=== PATIENT | female | born 1935 | race Caucasian/White ===

== ENCOUNTER 2017-01-10 16:34 | Inpatient (IN) | payer MEDICARE ==
[~2017-01-10] VITALS: Ht 165.1 cm; Wt 81.6 kg
[2017-01-10 16:34] VITALS: BP 131/69; PULSE 81; RESP 17; TEMP 98.4; O2SAT 95
[~2017-01-10 16:34] MED LIST: ATEN50TA GT; DONE10TA44 GT; FER300L GT; GUAI5SYR PO; LEVO88TA2 GT; MEMA28CA GT; MULT GT; OMEP20CA10 GT
--- NOTE | 2017-01-10 16:34 | NUR ---
Placed in room 1 . Placed on hospital monitor, blood pressure machine and pulse oximeter. To gown for exam. Side rails up. Report given to Tomeka THRASHER.
--- NOTE | 2017-01-10 16:35 | NUR ---
MD Boone at bedside evaluating patient
--- NOTE | 2017-01-10 16:35 | NUR ---
Pt brought by ambulance, Alert to name, pt sent to ER due to abnormal laba Na 160, pt skin is dry, cap refill <3, VSS, pt has G-tube in place, respirations even and unlabored, pt purposeful.
--- NOTE | 2017-01-10 16:35 | NUR ---
ER MD Whiteside at bedside evaluating the patient
[2017-01-10] MEDS ORDERED: NACL 0.9% 1,000 ML IV ONE (16:45)
--- NOTE | 2017-01-10 16:47 | NUR ---
Cook Apprentice at bedside for blood draw. patient identified
[2017-01-10] MEDS ORDERED: ACET-2165 GT (16:59)
[2017-01-10] MEDS ORDERED: ALBU2.5V7 INH (16:59)
--- NOTE | 2017-01-10 16:59 | NUR ---
Medication reconciliation completed with information provided by - list from facility. Any prior medication reconciliation on file was reviewed and corrected.
[2017-01-10 17:03] LABS: BASOPHILS # (AUTO) 0.1 K/uL (0.0-0.2); BASOPHILS % (AUTO) 0.8 % (0.0-2.0); EOSINOPHILS # (AUTO) 0.4 K/uL (0.0-0.4); EOSINOPHILS % (AUTO) 3.5 % (0.0-4.0); HEMATOCRIT 40.1 % (36-48); HEMOGLOBIN 12.9 g/dL (12.0-16.0); LYMPHOCYTES # (AUTO) 1.6 K/uL (1.0-5.5); LYMPHOCYTES % (AUTO) 13.6 % (20.5-51.5); MEAN CORPUSCULAR HEMOGLOBIN 32 pg (27-31); MEAN CORPUSCULAR HGB CONC 32 % (32-36); MEAN CORPUSCULAR VOLUME 98 fL (79.0-98.0); MONOCYTES # (AUTO) 0.6 K/uL (0.0-1.0); MONOCYTES % (AUTO) 4.8 % (1.7-9.3); NEUTROPHILS # (AUTO) 9.4 K/uL (1.8-7.7); NEUTROPHILS % (AUTO) 77.3 % (40.0-70.0); PLATELET COUNT (AUTO) 208 K/uL (130-430); RED CELL DISTRIBUTION WIDTH 15.4 % (9.0-15.0); WHITE BLOOD COUNT (AUTO) 12.1 K/uL (4.8-10.8)
--- NOTE | 2017-01-10 17:05 | NUR ---
Physician order given to place soft type restraints to prevent IV dislodgement . Restraints placed with quick-release ties to bed frame. Will monitor patient frequently.
[2017-01-10 17:09] LABS: ANION GAP 2 (5-15); CALCIUM 8.3 mg/dL (8.4-11.0); CHLORIDE 115 mmol/L (98-107); CREATININE 1.29 mg/dL (0.55-1.30); GLUCOSE 159 mg/dL (70-99); POTASSIUM 3.6 mmol/L (3.5-5.1); SODIUM SERUM 151 mmol/L (136-145); UREA NITROGEN, BLOOD 59 mg/dL (8-21)
[2017-01-10 17:12] LABS: INR 0.9 (0.8-1.2); PROTHROMBIN TIME 10.3 SECS (9.5-12.5)
[2017-01-10 17:16] LABS: ALANINE AMINOTRANSFERASE 32 U/L (12-78); ALBUMIN 2.6 g/dL (3.4-4.8); ASPARTATE AMINOTRANSFERASE 36 U/L (10-37); CHOLESTEROL 160 mg/dL (<200); HDL CHOLESTEROL 35 mg/dL (>55); LDL CHOLESTEROL 100 mg/dL (<100); TOTAL BILIRUBIN 0.5 mg/dL (0.0-1.0); TOTAL PROTEIN, SERUM 6.6 g/dL (6.4-8.3); TRIGLYCERIDES 150 mg/dL (30-150)
[2017-01-10 17:57] LABS: BILIRUBIN,URINE NEGATIVE (NEGATIVE); BLOOD, URINE 2+ (NEGATIVE); CLARITY/URINE CLOUDY (CLEAR); COLOR,URINE YELLOW (YELLOW); GLUCOSE,URINE NEGATIVE (NEGATIVE); KETONES,URINE TRACE (NEGATIVE); LEUKOCYTE ESTERASE ,URINE 3+ (NEGATIVE); NITRITE, URINE NEGATIVE (NEGATIVE); PH,URINE 6.5 (5.0-8.0); PROTEIN URINE 1+ (NEGATIVE); UROBILINOGEN,URINE 0.2 (0.2-1.0)
[2017-01-10 18:06] LABS: BACTERIA,URINE MANY /HPF (None Seen); MUCUS,URINE None Seen /LPF (None Seen); URINE AMORPHOUS URATE 3+ /HPF (None Seen); WBC,URINE >100 /HPF (0-3)
[2017-01-10 18:07] LABS: YEAST,URINE Few /HPF (None Seen)
[2017-01-10] MEDS ORDERED: LEVOFLOXACIN 500 MG/D5W 100 ML IV ONE (18:30)
[2017-01-10] MEDS ORDERED: ACETAMINOPHEN 325 MG TABLET GT PRN (18:45)
[2017-01-10] MEDS ORDERED: ALBUTEROL SULFATE 0.083% 2.5 MG/3 ML VIAL.NEB INH PRN (18:45)
[2017-01-10] MEDS ORDERED: IPRATROPIUM BROM 0.5 MG/2.5 ML VIAL.NEB (ATROVENT) INH PRN (18:45)
--- NOTE | 2017-01-10 19:00 | NUR ---
Patient will be admitted to care of Dr Macias . Admitted to Tele unit. Will go to room 104A. Belongings list completed. Summary report printed. Report given to Jose .
--- NOTE | 2017-01-10 19:06 | NUR ---
Admission Note Received patient from ER with diagnosis of hypernatremia. Initial Plan of Care discussed-patient verbalized understanding. Family at bedside. Oriented to room, call light, pain management and safety.
[2017-01-10 19:23] VITALS: BP 103/56; PULSE 64; RESP 16; TEMP 96.5; O2SAT 96
[2017-01-10 20:00] VITALS: BP 103/56; PULSE 72; RESP 20; TEMP 96.5; O2SAT 100
--- NOTE | 2017-01-10 20:00 | NUR ---
Initial Notes Received patient resting in bed, awake, disoriented, confused, in bilateral soft wrist restraints. Reoriented patient to self and surroundings. Patient denies any acute distress or pain. IV to right AC #20, patent/clean/dry. G-tube noted, flushed and clamped, dressing clean/dry. Wounds noted to bilateral ankles, pictures taken and charted, optifoam dressing applied. Andersen draining cloudy yellow urine to gravity. Educated patient on use of call light for assistance and fall precautions, patient verbalized understanding. Call light in hand, will continue to monitor.
[2017-01-10] MEDS: DONEPEZIL HCL 5 MG TABLET (ARICEPT) GT SCH (20:41)
[2017-01-10] MEDS: ALBUTEROL SULFATE 0.083% 2.5 MG/3 ML VIAL.NEB INH SCH (20:42)
[2017-01-10] MEDS: IPRATROPIUM BROM 0.5 MG/2.5 ML VIAL.NEB (ATROVENT) INH SCH (20:42)
[2017-01-10] MEDS: 0.45% NACL 1,000 ML IV SCH (20:42)
[2017-01-10] MEDS ORDERED: DONEPEZIL HCL 5 MG TABLET (ARICEPT) GT SCH (21:00)
--- NOTE | 2017-01-10 22:00 | NUR ---
Bilateral Soft Wrist Restraints Telephone order received from Dr. Boone for bilateral soft wrist restraints, due to patient attempting to remove tubes/lines. Attempted to inform family members via telephone at recorded numbers on facesheet. Son: Valentin Ramires @ , no answer. : Ahmet Ramires @ , no answer. embroidery specialist made aware. Patient tolerating restraints, will continue to monitor.
[2017-01-10 22:08] VITALS: BP 103/56; PULSE 98
[2017-01-11] VITALS (7 sets, daily range): BP systolic 100–117; BP diastolic 47–74; PULSE 65–78; RESP 15–20; TEMP 96–97.6; O2SAT 93–98
--- NOTE | 2017-01-11 | NUR ---
Rounds Patient resting in bed with eyes closed, easily aroused upon nurse entering room. Patient denies any acute distress or pain. Breathing is even and unlabored. IV site patent/clean/dry. Patient tolerating bilateral soft wrist restraints. When released from restraints patient unable to control right hand, pulling at lines/tubes even with re-education. Andersen draining to gravity. GT feeding started per MD order, HOB elevated. Call light in hand, fall precautions in place. Will continue to monitor.
--- NOTE | 2017-01-11 02:00 | NUR ---
Rounds Patient resting comfortably in bed with eyes closed, easily aroused upon nurse entering room. Patient denies any acute distress or pain at this time. Breathing even and unlabored. IV site patent/clean/dry. Andersen draining to gravity. HOB elevated. Patient tolerating restraints. Needs addressed. Call light in hand, fall precautions in place. Will continue to monitor.
--- NOTE | 2017-01-11 04:00 | NUR ---
Rounds Patient resting in bed, awake. Patient denies any acute distress or pain at this time. Vital signs stable. Breathing even and unlabored. IV site patent/clean/dry. Andersen draining to gravity. HOB elevated. Patient tolerating restraints. Needs addressed. Call light in hand, fall precautions in place. Will continue to monitor for changes and safety.
[2017-01-11] MEDS: 0.45% NACL 1,000 ML IV SCH (05:48)
[2017-01-11] MEDS: LEVOTHYROXINE SODIUM 0.088 MG TABLET GT SCH (06:13)
--- NOTE | 2017-01-11 06:35 | NUR ---
Closing Notes Patient resting in bed, awake, reoriented patient to surroundings. Patient denies any acute distress or pain at this time. Breathing even and unlabored on room air. IV site patent/clean/dry, no S/S infection/infiltration noted. Patient tolerating tube feeding, HOB elevated. Andersen draining yellow urine to gravity. Patient remains on bilateral soft wrist restraints due to attempting to remove lines/tubes, tolerating well. Needs addressed throughout shift. Call light in hand, fall precautions in place. Will continue to monitor for changes and safety, and endorse all patient care/needs to oncoming nurse.
[2017-01-11] MEDS: IPRATROPIUM BROM 0.5 MG/2.5 ML VIAL.NEB (ATROVENT) INH SCH ×5 (06:44→23:00)
[2017-01-11] MEDS: ALBUTEROL SULFATE 0.083% 2.5 MG/3 ML VIAL.NEB INH SCH ×5 (06:44→23:00)
--- NOTE | 2017-01-11 07:20 | NUR ---
Initial notes: pt on bed awake. i.v. access in patent. soft wrist restraint applied. pt tried pulling gtube and i.v. access. discussed plan of care. report received at bedside.
--- NOTE | 2017-01-11 07:53 | NUR ---
Nutrition Update Marco Scale 14 noted. Pt admitted for dehydration w/ hypernatremia. Diet: Isosource 1.5 at 30 ml/hr via GT BMI: 30 kg/m2 RD to follow per nutrition care standards.
[2017-01-11] MEDS ORDERED: MEMANTINE HCL 7 MG CAP.SPR.24 GT SCH (09:00)
--- NOTE | 2017-01-11 09:37 | NUR ---
CONSULT RENAL HYPERNATREMIA DR ALVARES [phone] DR ALVARES IS ROUNDING AND INFORMED OF CONSULT
--- NOTE | 2017-01-11 10:00 | NUR ---
Venous dopler: Venous dopler done. need to assist since patient tried to pull the cord.
[2017-01-11] MEDS: OMEPRAZOLE 20 MG CAPSULE.DR (PriLOSEC) GT SCH (10:15)
[2017-01-11] MEDS: FERROUS SULFATE 300 MG/5 ML UDC GT SCH (10:15)
[2017-01-11] MEDS: MULTIVITAMINS TAB 1 TABLET GT SCH (10:21)
[2017-01-11] MEDS: ATENOLOL 50 MG TABLET (TENORMIN) GT SCH (10:21)
[2017-01-11] MEDS ORDERED: MEMANTINE HCL 5 MG TABLET PO ONE (10:30)
[2017-01-11 10:39] LABS: BASOPHILS % (AUTO) 0.2 % (0.0-2.0); EOSINOPHILS # (AUTO) 0.4 K/uL (0.0-0.4); EOSINOPHILS % (AUTO) 4.2 % (0.0-4.0); HEMATOCRIT 34.5 % (36-48); HEMOGLOBIN 11.4 g/dL (12.0-16.0); LYMPHOCYTES # (AUTO) 1.5 K/uL (1.0-5.5); LYMPHOCYTES % (AUTO) 16.8 % (20.5-51.5); MEAN CORPUSCULAR HEMOGLOBIN 32 pg (27-31); MEAN CORPUSCULAR HGB CONC 33 % (32-36); MEAN CORPUSCULAR VOLUME 95 fL (79.0-98.0); MONOCYTES # (AUTO) 0.5 K/uL (0.0-1.0); NEUTROPHILS # (AUTO) 6.6 K/uL (1.8-7.7); NEUTROPHILS % (AUTO) 72.8 % (40.0-70.0); PLATELET COUNT (AUTO) 171 K/uL (130-430); RED BLOOD CELL COUNT(AUTO) 3.61 MIL/uL (4.2-6.2); RED CELL DISTRIBUTION WIDTH 15.1 % (9.0-15.0)
[2017-01-11 10:42] LABS: ANION GAP 3 (5-15); CALCIUM 8.3 mg/dL (8.4-11.0); CHLORIDE 115 mmol/L (98-107); CREATININE 1.12 mg/dL (0.55-1.30); GLUCOSE 188 mg/dL (70-99); POTASSIUM 3.8 mmol/L (3.5-5.1); SODIUM SERUM 148 mmol/L (136-145); UREA NITROGEN, BLOOD 51 mg/dL (8-21)
[2017-01-11] MEDS ORDERED: *HEPARIN PER PHARMACY XX ONE (10:45)
[2017-01-11 10:47] LABS: ALANINE AMINOTRANSFERASE 24 U/L (12-78); ALBUMIN 2.3 g/dL (3.4-4.8); ASPARTATE AMINOTRANSFERASE 24 U/L (10-37); TOTAL BILIRUBIN 0.4 mg/dL (0.0-1.0)
[2017-01-11] MEDS ORDERED: HEPARIN SODIUM,PORCINE 3000 UNITS/0.6 ML BOLUS IVP PRN (11:15)
[2017-01-11] MEDS ORDERED: HEPARIN SODIUM,PORCINE 2000 UNITS/0.4 ML BOLUS IVP PRN (11:15)
--- NOTE | 2017-01-11 12:36 | NUR ---
MARCO SCALE EVALUATION: Patient evaluated for a low Marco score of 14. Patient was awake, alert, confused, and received in a [place] bed with an IsoFlex FELISA mattress with low air-loss therapy initiated. Patient is unable to turn independently. Skin is fair. Recommend encourage and assist patient with repositioning every 2 hours with pillow support and off-load pressure areas with pillows for pressure re-distribution. Elevate, off-load and float bilateral heels with pillows. Use moisture barrier cream on buttocks and other moisture susceptible areas QID and as needed for soiling. Perform skin care and monitor skin integrity Q shift. Maintain patient on a low air-loss mattress.
[2017-01-11] MEDS ORDERED: HEPARIN SODIUM,PORCINE 5000 UNITS/ML VIAL IV ONE (13:00)
--- NOTE | 2017-01-11 13:00 | NUR ---
rounds: pt sleeping. no distress noted.
--- NOTE | 2017-01-11 13:30 | NUR ---
Heparin: started heparin as ordered and per protocol.
--- NOTE | 2017-01-11 15:00 | NUR ---
rounds: pt sleeping. no distress noted.
[2017-01-11] MEDS: D5W 1,000 ML IV SCH ×2 (19:01→19:46)
--- NOTE | 2017-01-11 19:15 | NUR ---
change of shift.initial pt's assessment.pt.recieving heparin-drip:rate:10units/hr=10ml/hr.ptt level 2 b drawn @2000p. 2 f/u via lab w/ value.pt.presents restraint:rt.wrist only.g-tube:feed:isosource:@30ml /hr.day sft nsg telephoned dr. clifford 4 the consent 4 renewal:restraint.2 b f/u.room air,iv fluids infusing via rt.wrist peripheral iv access. clla light placed w/in pt's reach.
--- NOTE | 2017-01-11 19:30 | NUR ---
closing notes: pt stable. needs attended. soft restraint in placed on the right wrist. report given at bedside.
--- NOTE | 2017-01-11 20:06 | NUR ---
PAGED PAGED STEPHANIE RODRIGUEZ AT [phone] SPOKE WITH UMANG.
--- NOTE | 2017-01-11 20:30 | NUR ---
darrin chapman returned the telephone call.apprisd of ther necessity 2 renew the restrainst. provided the order.apprised is he would consent 2 h20 flush g-tube. has provided the order:h20 flush g-tube:100 ml q -6hrs.
[2017-01-11] MEDS ORDERED: LEVOFLOXACIN 500 MG/D5W 100 ML IV SCH (21:00)
--- NOTE | 2017-01-11 21:00 | NUR ---
2100p medications administered via g-tube;flushed, patent.call light placed w/in pt's reach.awaiting the ptt lab value.
--- NOTE | 2017-01-11 22:15 | NUR ---
ptt level conveyed per lab:ptt value:>120.2 f/u w/ adjustment per instructions orders.sheet-parameter.
--- NOTE | 2017-01-11 22:30 | NUR ---
attended 2 the heparin adjustment:w/ tomás;rn/kiet,janene;rn adm.am to hold th3 heparin and order repeat ptt. tthe ptt level 2 b drawn @2330p.
[2017-01-11] MEDS: DONEPEZIL HCL 5 MG TABLET (ARICEPT) GT SCH (22:50)
[2017-01-11] MEDS: MEMANTINE HCL 5 MG TABLET PO SCH (22:51)
[2017-01-12] VITALS (7 sets, daily range): BP systolic 115–152; BP diastolic 49–75; PULSE 70–84; RESP 16–20; TEMP 96.4–98.1; O2SAT 92–98; Ht 165.1 cm; Wt 81.6 kg
--- NOTE | 2017-01-12 | NUR ---
g-tube residual assessed.g-tube flushed:100ml.residual noted@10ml,g-tube patent.
[2017-01-12] MEDS: HEPARIN 25,000 UNITS in 250 ML PREMIX IV PRN ×3 (01:00→21:17)
--- NOTE | 2017-01-12 01:15 | NUR ---
ptt value :72.per dida;rn/chg,brain;rn/adm,heparin 2 b re-intiated @800units/hr=8ml/hr.via lt.hand. iv access dry/intact.
[2017-01-12] MEDS: IPRATROPIUM BROM 0.5 MG/2.5 ML VIAL.NEB (ATROVENT) INH SCH ×6 (03:00→23:00)
[2017-01-12] MEDS: ALBUTEROL SULFATE 0.083% 2.5 MG/3 ML VIAL.NEB INH SCH ×6 (03:00→23:00)
--- NOTE | 2017-01-12 03:00 | NUR ---
pt.assessed.iv heparin infusing@800units/hr=8ml/hr.via lt.hand.pt.repositioned.call lioght placed w/in pt's reach.
--- NOTE | 2017-01-12 06:00 | NUR ---
pt.repositioned,cleaned.iv heparin assessed.g-tube flushed:100ml,g-tube residual:10ml.patent.g-tube gfeed bag changed.
[2017-01-12] MEDS: D5W 1,000 ML IV SCH ×2 (06:15→17:37)
[2017-01-12] MEDS: LEVOTHYROXINE SODIUM 0.088 MG TABLET GT SCH (06:21)
[2017-01-12 07:19] LABS: ANION GAP 6 (5-15); CALCIUM 8.4 mg/dL (8.4-11.0); CHLORIDE 109 mmol/L (98-107); CREATININE 0.95 mg/dL (0.55-1.30); GLUCOSE 228 mg/dL (70-99); POTASSIUM 4.3 mmol/L (3.5-5.1); SODIUM SERUM 142 mmol/L (136-145); UREA NITROGEN, BLOOD 38 mg/dL (8-21)
--- NOTE | 2017-01-12 08:00 | NUR ---
OPENING NOTE PT LAYING IN BED, RESTING, EASY TO AROUSE, ORIENTED TO NAME, WRIST RESTRAINT NOTED TO RIGHT ARM, SKIN INTACT, IV NOTED TO RIGHT FOREARM INFUSING APPROPRIATE FLUID AT ORDERED RATE, IV NOTED TO LEFT HAND INFUSING HEPARIN DRIP, BOTH SITES PATENT, NO S/S OF INFILTRATION NOTED. GTUBE IN PLACE, FEEDING INFUSING AT ORDERED RATE. NOTED LEFT SIDED FLACCIDNESS, SKIN INTACT, VSS. SAFETY MEASURES IN PLACE, BED IN LOW POSITION AND LOCKED, CALL LIGHT WITHIN REACH, RESTRAINTS RELEASED DURING ASSESSMENT, PATIENT NOTED TO BE PULLING AT LINES, AND COMBATIVE, BEFORE EXITING ROOM RESTRAINTS APPLIED. WILL CONTINUE TO MONITOR.
[2017-01-12 08:58] LABS: BASOPHILS % (AUTO) 0.2 % (0.0-2.0); EOSINOPHILS # (AUTO) 0.3 K/uL (0.0-0.4); EOSINOPHILS % (AUTO) 3.4 % (0.0-4.0); HEMATOCRIT 34.4 % (36-48); HEMOGLOBIN 11.2 g/dL (12.0-16.0); LYMPHOCYTES # (AUTO) 1.5 K/uL (1.0-5.5); LYMPHOCYTES % (AUTO) 16.5 % (20.5-51.5); MEAN CORPUSCULAR HEMOGLOBIN 31 pg (27-31); MEAN CORPUSCULAR HGB CONC 33 % (32-36); MEAN CORPUSCULAR VOLUME 96 fL (79.0-98.0); MONOCYTES # (AUTO) 0.6 K/uL (0.0-1.0); MONOCYTES % (AUTO) 6.7 % (1.7-9.3); NEUTROPHILS # (AUTO) 6.9 K/uL (1.8-7.7); NEUTROPHILS % (AUTO) 73.2 % (40.0-70.0); PLATELET COUNT (AUTO) 161 K/uL (130-430); RED CELL DISTRIBUTION WIDTH 14.8 % (9.0-15.0); WHITE BLOOD COUNT (AUTO) 9.3 K/uL (4.8-10.8)
--- NOTE | 2017-01-12 09:09 | NUR ---
Marcel. Consult: Called for consult with Dr. Flanagan, regarding DVT, ordered by Dr. Boone, spoke with Em. She said he was in "clinical" until 5:00 pm and would not be available until after that.
--- NOTE | 2017-01-12 09:45 | NUR ---
MEDICATIONS ADMINISTERED VIA GTUBE, 50CC RESIDUAL NOTED, WATER FLUSHED WITH 100CC, PT TOLERATED WELL, RESTRAINTS RELEASED WHILE IN ROOM, PATIENT NOTED TO BE AGITATED AND PULLING AT LINES, RESTRIANTS RETURNED PRIOR TO EXITING ROOM, SAFETY MEASURES IN PLACE, CALL LIGHT WITHIN REACH.
[2017-01-12] MEDS: MULTIVITAMINS TAB 1 TABLET GT SCH (10:28)
[2017-01-12] MEDS: OMEPRAZOLE 20 MG CAPSULE.DR (PriLOSEC) GT SCH (10:28)
[2017-01-12] MEDS: LACTOBACILLUS RHAMNOSUS GG 1 CAP CAPSULE PO SCH ×2 (10:28→21:15)
[2017-01-12] MEDS: MEMANTINE HCL 5 MG TABLET PO SCH ×2 (10:28→21:15)
[2017-01-12] MEDS: ATENOLOL 50 MG TABLET (TENORMIN) GT SCH (10:29)
[2017-01-12] MEDS: FERROUS SULFATE 300 MG/5 ML UDC GT SCH (10:29)
--- NOTE | 2017-01-12 12:12 | NUR ---
PAGED DR SHOEMAKER TO REPORT URINE CULTURE RESULTS, AWAITING CALL BACK.
--- NOTE | 2017-01-12 12:28 | NUR ---
DR SHOEMAKER NOTIFIED OF URINE CULTURE RESULTS, PATIENT POSITIVE FOR E.COLI, ESBL. MDRO OF THE URINE, INFORMED THAT CULTURE IS RESISTANT TO LEVAQUIN WHICH IS THE ANTIBIOTIC ORDERED AT THIS TIME. MD ACKNOWLEDGE INFORMATION, NO NEW ORDER RECEIVED AT THIS TIME.
[2017-01-12] MEDS ORDERED: COMMUNICATION ORDER XX ONE (12:45)
--- NOTE | 2017-01-12 12:45 | NUR ---
DR SAHARA PAIZ
--- NOTE | 2017-01-12 14:10 | NUR ---
DC PLANNING: Met with dr. Boone in CM dept, the md. requested Ltac eval for the pt. DT new labs ESBL- UA and positive layla. DVT. >> Notified PATRICIA Sheldon at [facility] and requesting auth for Ltac transfer. Per Mo, she is requesting pt. transferring to insurance net work 24 hr after the pt. is stabilized. She stated that admitting notification was delayed, the pt. was adm on 01/10 and received faxed notification 01/12. [facility] admitting dept made aware of the concern. Pito asked for her return call regarding transferring the pt. to net work. She need to consult with her MD. -- CM to f/u. Addendum: 01/12/17 at 1515 by Debbie JULES Faxed DC Planning order to [place] [facility] [phone]. Notified Stephy Hanson Will follow up.
--- NOTE | 2017-01-12 16:00 | NUR ---
ROUNDS PT RESTRAINTS RELEASED, NEURO CHECKS COMPLETE, PT CLEANED AND REPOSTIONED WITH PILLOW SUPPORT, ALL NEEDS ATTENDED TO, PT RESTRAINT RETURNED, SAFTY MEASURES IN PLACE, SIDE RAILS UP, WILL FOLLOW UP
--- NOTE | 2017-01-12 16:37 | NUR ---
Swallow Eval: Left voicemail for Yadira informing her of swallow eval order.
[2017-01-12] MEDS: ERTAPENEM SODIUM 1 GM in NS 50 ML IV SCH (17:38)
--- NOTE | 2017-01-12 19:00 | NUR ---
CLOSING NOTE PT LAYING IN BED, FAMILY AT BEDSIDE, PT CONFUSED, ORIENTED TO OWN NAME, NO S/S OF DISTRESS AT THIS TIME, IV TO RAC AND LEFT HAND INTACT, PATENT AND INFUSING AT ORDERED RATES, GTUBE IN PLACE AND INFUSING FEEDING AND ORDERED RATE. LAMA CATHETER IN PLACE, AND DRAINING TO GRAVITY. PATIENT POSITIONED WITH PILLOW SUPPORT TO BILATERAL LOWER EXTREMITIES AND LEFT ARM. RIGHT ARM NO CURRENTLY IN RESTRAIN TO DUE FAMILY AT BEDSIDE AND IS ABLE TO MONITOR PATIENT AND KEEP FROM PULLING AT LINES, SAFETY AND CONTACT PRECAUTIONS MAINTAINED, BED IN LOW POSITION AND LOCKED, BEDSIDE REPORT TO BE GIVEN TO ONCOMING NURSE AT BEDSIDE.
--- NOTE | 2017-01-12 19:47 | NUR ---
OPENING NOTE/FAMILY AND DR. FLANAGAN AT BEDSIDE Late entry due to pt. care. Pt.'s family at bedside with questions and concerns, Dr. Flanagan talking to family. Bedside report and pt. received from day shift nurse. Pt.'s son Valentin Burris" was concerned about pt.'s soft wrist restraint but Valentin Zavala's daughter (pt.'s granddaughter) explained need for restraint due to pt. pulling out medical lines and all family members at bedside agreed. Plan of care discussed; safety measures in place. Bed alarm on. Room near nurses station. Will continue to monitor.
[2017-01-12] MEDS: DONEPEZIL HCL 5 MG TABLET (ARICEPT) GT SCH (21:15)
--- NOTE | 2017-01-12 22:00 | NUR ---
TUBEFEEDING/CHG BED BATH/SKIN CARE Late entry due to pt. care. Tubefeeding bag and tubing changed. Pt. tolerating feeding well with zero residuals noted at this time. Dressing to left ankle changed due to soiling. Pt. tolerated well. CHG bed bath given. No s/s of injury related to soft wrist restraints. Repositioned with pillows as support. Safety measures in place. Bed alarm on. Call light placed to right hand. Encouraged pt. to use call light for needs but she is confused and forgetful. Room near nurses station. Will continue to monitor.
--- NOTE | 2017-01-12 23:17 | NUR ---
ROUNDS Late entry due to pt. care. Pt. is resting quietly in bed with no s/s of acute distress. Safety measures in place. Bed alarm on. No s/s of injury related to soft wrist restraints. Will continue to monitor.
--- NOTE | 2017-01-13 00:23 | NUR ---
ROUNDS/WATER FLUSH Pt. is resting quietly in bed with no s/s of acute distress. No s/s of injury related to soft wrist restraints. Water flush done as ordered. Pt. tolerating feeding well with zero residuals noted at this time. Safety measures in place. Bed alarm on. Will continue to monitor.
[2017-01-13] MEDS: D5W 1,000 ML IV SCH (02:10)
--- NOTE | 2017-01-13 02:40 | NUR ---
IV SITE TO LEFT A/C REDRESSED Late entry due to pt. care. IV site to right a/c was redressed by charge nurse, PRICE Ly. Will continue to monitor.
[2017-01-13] MEDS: ALBUTEROL SULFATE 0.083% 2.5 MG/3 ML VIAL.NEB INH SCH ×4 (03:00→15:00)
[2017-01-13] MEDS: IPRATROPIUM BROM 0.5 MG/2.5 ML VIAL.NEB (ATROVENT) INH SCH ×4 (03:00→15:00)
[2017-01-13 03:53] VITALS: BP 114/60; PULSE 64; RESP 18; TEMP 97.2; O2SAT 95
--- NOTE | 2017-01-13 04:04 | NUR ---
ROUNDS Pt. is resting quietly in bed with no s/s of acute distress. No s/s of injury related to soft wrist restraints. Safety measures in place. Bed alarm on. Will continue to monitor.
--- NOTE | 2017-01-13 04:41 | NUR ---
REPOSITIONING Repositioned pt. with pillows as support. No s/s of pain or discomfort at this time. No s/s of injury related to soft bilateral wrist restraints. Safety measures in place. Bed alarm on. Will continue to monitor.
--- NOTE | 2017-01-13 05:08 | NUR ---
LAB Spoke to Soni from lab regarding pt.'s PTT lab draw. She stated white spooler Salma is on the unit making rounds. Will continue to follow up.
[2017-01-13] MEDS: LEVOTHYROXINE SODIUM 0.088 MG TABLET GT SCH (06:00)
[2017-01-13 07:19] LABS: BASOPHILS % (AUTO) 0.4 % (0.0-2.0); EOSINOPHILS # (AUTO) 0.3 K/uL (0.0-0.4); EOSINOPHILS % (AUTO) 4.5 % (0.0-4.0); HEMATOCRIT 34.9 % (36-48); HEMOGLOBIN 11.4 g/dL (12.0-16.0); LYMPHOCYTES # (AUTO) 1.5 K/uL (1.0-5.5); LYMPHOCYTES % (AUTO) 22.3 % (20.5-51.5); MEAN CORPUSCULAR HEMOGLOBIN 31 pg (27-31); MEAN CORPUSCULAR HGB CONC 33 % (32-36); MEAN CORPUSCULAR VOLUME 95 fL (79.0-98.0); MONOCYTES # (AUTO) 0.4 K/uL (0.0-1.0); MONOCYTES % (AUTO) 5.3 % (1.7-9.3); NEUTROPHILS # (AUTO) 4.5 K/uL (1.8-7.7); NEUTROPHILS % (AUTO) 67.5 % (40.0-70.0); PLATELET COUNT (AUTO) 182 K/uL (130-430); RED BLOOD CELL COUNT(AUTO) 3.68 MIL/uL (4.2-6.2); RED CELL DISTRIBUTION WIDTH 14.8 % (9.0-15.0); WHITE BLOOD COUNT (AUTO) 6.7 K/uL (4.8-10.8)
[2017-01-13 07:48] LABS: ALANINE AMINOTRANSFERASE 22 U/L (12-78); ALBUMIN 2.3 g/dL (3.4-4.8); ANION GAP 6 (5-15); ASPARTATE AMINOTRANSFERASE 28 U/L (10-37); CALCIUM 8.5 mg/dL (8.4-11.0); CHLORIDE 105 mmol/L (98-107); CREATININE 0.99 mg/dL (0.55-1.30); GLUCOSE 151 mg/dL (70-99); SODIUM SERUM 140 mmol/L (136-145); TOTAL BILIRUBIN 0.2 mg/dL (0.0-1.0); TOTAL PROTEIN, SERUM 6.3 g/dL (6.4-8.3); UREA NITROGEN, BLOOD 25 mg/dL (8-21)
--- NOTE | 2017-01-13 07:53 | NUR ---
PTT RESULT PENDING/CLOSING NOTES PTT result is pending; endorsed heparin drip protocol orders to day shift nurse. Pt. and bedside report given to day shift nurse. Pt. is stable with no significant changes. All needs met throughout shift. Safety measures in place. Endorsed care to day shift nurse.
[2017-01-13 08:00] VITALS: BP 101/47; PULSE 71; RESP 20; TEMP 96.4; O2SAT 95
--- NOTE | 2017-01-13 08:07 | NUR ---
S.T. SWALLOW EVAL PERFORMED. PT PRESENTS W/ PRE-ORAL DYSPHAGIA. SHE TOLERATED TSP NECTAR THICK LIQUIDS RELUCTANTLY THOUGH W/ FUNCTIONAL TRANSFER AND SWALLOW. SHE TOOK TSP PUREE BUT SPAT IT OUT; SHE THEN REFUSED FURTHER PRESENTATION STATING "I DON'T WANT TO EAT". UNABLE TO PRESENT FURTHER P.O. TRIALS. REC: NPO - CONTINUE GT FEEDING. RE-EVAL WHEN P.O. INTEREST INCREASES. NURSE LASHAUN NOTIFIED. G8996 CM G8997 CM G8998 CM NOMS LEVEL 2
--- NOTE | 2017-01-13 08:34 | NUR ---
OPENING NOTE RECEIVED REPORT FROM NIGHT NURSE, PATIENT IS RESTING COMFORTABLY IN BED WITH NO NOTED DISTRESS, DISCOMFORT OR SOB. PATIENT IS ALERT BUT CONFUSED. PATIENT IS ON RESTRAINTS BECAUSE SHE TAKES OUT IV'S AND OTHER LINES. RESTRAINTS WERE REMOVED FOR 5 MINUTES AND PATIENT WAS REPOSITIONED AND TOLERATED IT WELL. THE PTT WAS 83 AND SO THE HEPARIN DRIP WAS DECREASED 100 UNITS TO 700 UNITS AND ANOTHER PTT WAS ORDERED FOR 1430. CALL LIGHT IS WITHIN REACH AND BED IS IN LOWEST POSITION. WILL CONTINUE TO MONITOR.
[2017-01-13] MEDS: ATENOLOL 50 MG TABLET (TENORMIN) GT SCH (09:00)
--- NOTE | 2017-01-13 09:09 | NUR ---
Nutrition Note Nutrition Consult (LOW ANDREA, TUBEFEEDING, WOUNDS) received 01/13/17 0143. Pt was seen and assessed by RD on 01/12/17. Please refer to Nutrition Assessment for details. RD to continue to follow per nutrition care standards.
[2017-01-13] MEDS: MEMANTINE HCL 5 MG TABLET PO SCH (09:48)
[2017-01-13] MEDS: FERROUS SULFATE 300 MG/5 ML UDC GT SCH (09:48)
[2017-01-13] MEDS: MULTIVITAMINS TAB 1 TABLET GT SCH (09:48)
[2017-01-13] MEDS: OMEPRAZOLE 20 MG CAPSULE.DR (PriLOSEC) GT SCH (09:48)
[2017-01-13] MEDS: LACTOBACILLUS RHAMNOSUS GG 1 CAP CAPSULE PO SCH (09:48)
--- NOTE | 2017-01-13 11:41 | NUR ---
NOTE PATIENT IS RESTING IN BED WITH NO NOTED DISTRESS, DISCOMFORT OR SOB. CALL LIGHT IS WITHIN REACH AND VITAL SIGNS WERE WITHIN NORMAL RANGE AND ALL MORNING MEDICATIONS WERE GIVEN THIS MORNING WITH NO COMPLICATIONS. DR SHOEMAKER RENEWED THE RESTRAINT ORDER FOR THE RIGHT ARM. WILL CONTINUE TO MONITOR.
[2017-01-13 12:33] VITALS: BP 108/78; PULSE 70; RESP 17; TEMP 97.9; O2SAT 97
--- NOTE | 2017-01-13 12:37 | NUR ---
DISCHARGE PLANNING DC order back to [facility]. Faxed SNF referral to [facility] [phone]. will follow up. Addendum: 01/13/17 at 1424 by Debbie Childs DP spoke with Estelita in admitting at [facility] patient assigned to [facility] room 101A RN to report [phone]. Made patient Bruno Ramires in hospital room 119A aware of patient discharge back to [facility] today. PRICE Morgan made aware. CM will follow up with on Tavo Diaz. Any ambulance can be arranged. Placed transportation packet in nurses station. Addendum: 01/13/17 at 1509 by Debbie Childs DP PER PRICE MORGAN CALLED [facility] [phone] SPOKE WITH COLIN ARRANGED BLS TRANSPORT HARNESS REPAIRER 5PM.
--- NOTE | 2017-01-13 14:24 | NUR ---
NOTE PATIENT IS RESTING IN BED COMFORTABLY IN BED WITH NO NOTED DISTRESS, DISCOMFORT AND SOB. BED IS IN LOWEST POSITION AND CALL LIGHT IS WITHIN REACH. WOUND CARE WAS PROVIDED ON BILATERAL ANKLES AND PATIENT TOLERATED WELL. WILL CONTINUE TO MONITOR.
--- NOTE | 2017-01-13 14:24 | NUR ---
WOUND EVALUATION: Wound Consult received from Dr. Boone. Thank you, Dr. Boone, for the consult. Patient received in a [place] Bed with an IsoFlex FELISA mattress with low air-loss therapy, awake, sleepy, confused, limited verbal response. Patient is unable to turn independently. Marco Score is a 14. Past Medical History: CVA, Dementia. Recent Labs: WBC 6.7, RBC 3.68, Hgb 11.4, Hct 34.9, BUN 25, Creat 0.99, Gluc 151, Alb 2.3, PTT 77.9. Intrinsic factors that delay wound healing: CVA, Hypoalbuminemia. Extrinsic factors that delay wound healing: Decreased mobility. Blood Culture x 2 in progress. MRSA Screen negative. Urine Culture positive for E. Coli (ESBL, MDRO). Wound Assessment: 1) Left Lateral Malleolus: Unstageable Pressure Ulcer, present on admission. 70% yellow tissue, 30% pink tissue. No odor, scant yellow drainage. Measures 2.5 cm x 1.9 cm x 0.3 cm. Recommend: Cleanse wound with normal saline. Place moisture barrier cream onto britany-wound. Put Venelex ointment onto wound bed. Cover with foam dressing. Perform wound care daily, and as needed for dressing soiling or dislodgement. 2) Right Foot, Lateral Border, Anterior to Heel: Small chronic wound, present on admission. 100% black eschar. No odor, no drainage. Per-wound pink. Recommend: Cover with foam dressing for protection. Perform wound care daily, and as needed for dressing soiling or dislodgement. Also recommend: Reposition patient every 2 hours with pillow support and off-load pressure areas with pillows for pressure re-distribution. Offload, elevate and float bilateral feet/heels with pillows at all times. Perform skin care and monitor skin integrity Q shift. Use moisture barrier cream on buttocks and other moisture susceptible areas QID and as needed for soiling. Maintain patient on a low air-loss mattress.
--- NOTE | 2017-01-13 16:00 | NUR ---
NOTE PATIENT WAS DISCHARGED BACK TO [facility] AND DR SHOEMAKER SPOKE TO THE FAMILY AND THEY WERE OK WITH THE PATIENT GOING BACK, REPORT WAS GIVEN TO ARABELLA AND TRANSPORTATION IS SUPPOSE TO BE HERE AT 1700. TOOK A PICTURE OF PATIENT'S WOUND AND PATIENT'S IV WILL REMAIN BECAUSE PATIENT WILL CONTINUE ON IV ATB AT SNF. PATIENT WAS CLEANED AND PUT IN ORANGE. TRANSITIONAL CARE WAS PROVIDED AND PATIENT'S FAMILY VERBALIZED UNDERSTANDING. WILL CONTINUE TO MONITOR UNTIL EMT ARRIVE.
[2017-01-13 16:09] VITALS: BP 106/66; PULSE 71; RESP 18; TEMP 98; O2SAT 98
[2017-01-13 16:22] VITALS: BP 106/66; PULSE 66; RESP 18; TEMP 98; O2SAT 98
[2017-01-13] MEDS: ERTAPENEM SODIUM 1 GM in NS 50 ML IV SCH (17:00)
--- NOTE | 2017-01-13 18:47 | NUR ---
DISCHARGE EMT IS HERE TO DIRECTOR MERIT SYSTEM PATIENT IS STABLE CONDITION WITH NO NOTED DISTRESS, DISCOMFORT OR SOB. PADMINI FRITZ IS EXPECTING PATIENT REPORT WAS GIVEN TO ARABELLA, FAMILY IS AWARE AND TRANSITION OF CARE WAS PROVIDED TO FAMILY WHO VERBALIZED UNDERSTANDING. ALL BELONGINGS WERE TAKEN WITH EMT
[2017-01-13] MEDS ORDERED: APIXABAN 2.5 MG TABLET PO SCH (21:00)
[2017-01-14] MEDS ORDERED: BALSAM PERU/CASTOR OIL 60 GM OINT...G. TP SCH (09:00)
== END 2017-01-13 18:50 | DRG 299 ==
LOC: SED 16:34 → SMU 18:51
PROVIDERS: ADMIT Internal Medicine Hospice and Palliative Medicine; ATTEND Internal Medicine Hospice and Palliative Medicine
DX: I82.403 Acute embolism and thrombosis of unspecified deep veins of lower extremity, bilateral (principal); G93.41 Metabolic encephalopathy; N39.0 Urinary tract infection, site not specified; E87.0 Hyperosmolality and hypernatremia; N17.9 Acute kidney failure, unspecified; E86.0 Dehydration; E03.9 Hypothyroidism, unspecified; F01.50 Vascular dementia, unspecified severity, without behavioral disturbance, psychotic disturbance, mood disturbance, and anxiety; K21.9 Gastro-esophageal reflux disease without esophagitis; Z93.1 Gastrostomy status; Z88.0 Allergy status to penicillin; Z88.8 Allergy status to other drugs, medicaments and biological substances; Z91.040 Latex allergy status; Z79.899 Other long term (current) drug therapy; I69.320 Aphasia following cerebral infarction; B96.20 Unspecified Escherichia coli [E. coli] as the cause of diseases classified elsewhere; I12.9 Hypertensive chronic kidney disease with stage 1 through stage 4 chronic kidney disease, or unspecified chronic kidney disease; N18.9 Chronic kidney disease, unspecified
CPT/HCPCS: 36415; 71010; 80048; 80053; 80061; 81000-TC; 83880; 85025; 85379; 85610-TC; 85730-TC; 87040-TC; 87081; 87086; 87186-TC; 92610-GN; 93005; 93970; 94640; 94760; 96361; 96374; 99285; J1335; J1644; J1956; J7060

== ENCOUNTER 2017-02-06 21:27 | Emergency (ER) | payer MEDICARE ==
[~2017-02-06] VITALS: Ht 160 cm; Wt 63.5 kg
[2017-02-06 21:27] VITALS: BP_SYST 130
[~2017-02-06 21:27] MED LIST changes: +ACET-2165 GT; +ALBU2.5V7 INH; -GUAI5SYR PO
--- NOTE | 2017-02-06 21:30 | NUR ---
Patient to ER bed 5 to gown for evaluation. Side rails up. Report given to .
--- NOTE | 2017-02-06 21:43 | NUR ---
Patient brought to ER by ambulance from nursing facility post mechanical fall. 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 Per facility, patient was found on the floor. patient denies pain, no signs of trauma, no bleeding, alert to person, Gtube, incontinent of urine & feces, left side muscle atrophy. No signs of acute distress.
--- NOTE | 2017-02-06 22:01 | NUR ---
ER MD Bai at bedside for evaluation
[2017-02-06] MEDS ORDERED: NACL 0.9% 1,000 ML IV ONE (22:19)
--- NOTE | 2017-02-06 22:35 | NUR ---
Crusher Operator at bedside for blood draw.
--- NOTE | 2017-02-06 22:50 | NUR ---
Patient off the unit for CT scan
--- NOTE | 2017-02-06 22:50 | NUR ---
Note eliceosanty in EDM - 02/06/17 at 2356 by JAGDISH Patient is cooperative, however, dows not want an IV. Family convinced patient to agree to the IV but pulled the first IV out. At second IV attempt patient pulled the hand. ER MD Bai aware.
--- NOTE | 2017-02-06 23:00 | NUR ---
# 14 FR In and Out catheter with use of sterile technique. Immediate return of 300 ml YELLOW cloudy urine noted. Urine sample collected and sent to lab. Pt tolerated procedure well.
--- NOTE | 2017-02-06 23:16 | NUR ---
Patient is cooperative, however, dows not want an IV. Family convinced patient to agree to the IV but pulled the first IV out. At second IV attempt patient pulled the hand. ER MD Bai aware.
[2017-02-06 23:29] LABS: BASOPHILS % (AUTO) 0.5 % (0.0-2.0); EOSINOPHILS # (AUTO) 0.3 K/uL (0.0-0.4); EOSINOPHILS % (AUTO) 4.9 % (0.0-4.0); HEMATOCRIT 33.5 % (36-48); HEMOGLOBIN 11.4 g/dL (12.0-16.0); LYMPHOCYTES # (AUTO) 1.2 K/uL (1.0-5.5); LYMPHOCYTES % (AUTO) 17.9 % (20.5-51.5); MEAN CORPUSCULAR HEMOGLOBIN 33 pg (27-31); MEAN CORPUSCULAR HGB CONC 34 % (32-36); MEAN CORPUSCULAR VOLUME 97 fL (79.0-98.0); MONOCYTES # (AUTO) 0.6 K/uL (0.0-1.0); MONOCYTES % (AUTO) 8.4 % (1.7-9.3); NEUTROPHILS # (AUTO) 4.7 K/uL (1.8-7.7); NEUTROPHILS % (AUTO) 68.3 % (40.0-70.0); PLATELET COUNT (AUTO) 276 K/uL (130-430); RED BLOOD CELL COUNT(AUTO) 3.44 MIL/uL (4.2-6.2); RED CELL DISTRIBUTION WIDTH 16.5 % (9.0-15.0); WHITE BLOOD COUNT (AUTO) 6.8 K/uL (4.8-10.8)
[2017-02-06 23:33] LABS: ANION GAP 4 (5-15); CALCIUM 8.6 mg/dL (8.4-11.0); CHLORIDE 106 mmol/L (98-107); GLUCOSE 112 mg/dL (70-99); POTASSIUM 3.9 mmol/L (3.5-5.1); SODIUM SERUM 138 mmol/L (136-145); UREA NITROGEN, BLOOD 48 mg/dL (8-21)
[2017-02-06 23:38] LABS: ALANINE AMINOTRANSFERASE 24 U/L (12-78); ALBUMIN 2.6 g/dL (3.4-4.8); ASPARTATE AMINOTRANSFERASE 23 U/L (10-37); TOTAL BILIRUBIN 0.3 mg/dL (0.0-1.0); TOTAL PROTEIN, SERUM 6.3 g/dL (6.4-8.3)
[2017-02-07] MEDS ORDERED: ASCO500T20 GT (00:20)
[2017-02-07] MEDS ORDERED: ZIN220 GT (00:20)
[2017-02-07] MEDS ORDERED: AMIN30LI2 GT (00:20)
[2017-02-07] MEDS ORDERED: COLL90OI2 TP (00:20)
[2017-02-07] MEDS ORDERED: APIX5TAB GT (00:20)
--- NOTE | 2017-02-07 00:21 | NUR ---
Medication reconciliation completed with information provided by - list from facility. Any prior medication reconciliation on file was reviewed and corrected.
[2017-02-07 00:25] LABS: BILIRUBIN,URINE NEGATIVE (NEGATIVE); BLOOD, URINE 3+ (NEGATIVE); CLARITY/URINE CLOUDY (CLEAR); COLOR,URINE YELLOW (YELLOW); GLUCOSE,URINE NEGATIVE (NEGATIVE); KETONES,URINE NEGATIVE (NEGATIVE); LEUKOCYTE ESTERASE ,URINE 3+ (NEGATIVE); NITRITE, URINE NEGATIVE (NEGATIVE); PH,URINE 6.5 (5.0-8.0); PROTEIN URINE 2+ (NEGATIVE)
[2017-02-07 00:26] LABS: UROBILINOGEN,URINE 0.2 (0.2-1.0)
[2017-02-07 00:29] LABS: BACTERIA,URINE MANY /HPF (None Seen); MUCUS,URINE None Seen /LPF (None Seen); RBC,URINE 20-50 /HPF (0-3); WBC,URINE >100 /HPF (0-3)
[2017-02-07] MEDS ORDERED: cefTRIAXone 1 GM in LIDOCAINE 1%, 20 ML MDV 2.1 ML IM ONE (00:45)
--- NOTE | 2017-02-07 01:52 | NUR ---
Called Anuj Quinones & gave report to Adriana THRASHER. Discussed discharge instructions and prescription. Patient is going back to [facility]
[2017-02-07 01:58] VITALS: BP_SYST 112
--- NOTE | 2017-02-07 01:58 | NUR ---
Patient given written and verbal discharge instructions and verbalizes understanding. ER MD Bai discussed with patient the results and treatment provided. Given copies of tests performed in ER. Patient in stable condition. ID arm band removed. Rx of macrobid given. Patient educated on pain management and to follow up with PMD. Pain Scale 0/10. Opportunity for questions provided and answered.
== END 2017-02-07 01:58 | disposition home or self-care (01) ==
LOC: SED 21:28
DX: Z00.00 Encounter for general adult medical examination without abnormal findings (principal); F03.90 Unspecified dementia, unspecified severity, without behavioral disturbance, psychotic disturbance, mood disturbance, and anxiety; K21.9 Gastro-esophageal reflux disease without esophagitis; I10 Essential (primary) hypertension; R51 Headache; Z91.040 Latex allergy status; Z88.0 Allergy status to penicillin; Z86.73 Personal history of transient ischemic attack (TIA), and cerebral infarction without residual deficits; W06.XXXA Fall from bed, initial encounter; Y93.89 Activity, other specified; Y99.8 Other external cause status; Y92.89 Other specified places as the place of occurrence of the external cause
CPT/HCPCS: 36415; 70450; 80053; 81000; 85025; 85610; 87086; 96372; 99285; J0696; J2001; J7030; 87186-TC

== ENCOUNTER 2017-02-09 20:39 | Inpatient (IN) | payer MEDICARE, OTHER ==
[~2017-02-09] VITALS: Ht 162.6 cm; Wt 60.8 kg
[~2017-02-09 20:39] MED LIST changes: +AMIN30LI2 GT; +APIX5TAB GT; +ASCO500T20 GT; +COLL90OI2 TP; +GUAI5SYR PO; +ZIN220 GT
[2017-02-09 20:45] VITALS: BP 133/62; PULSE 61; RESP 18; TEMP 97.4; O2SAT 98
--- NOTE | 2017-02-09 20:49 | NUR ---
Placed in room 06 . Placed on vehicle monitor technician, blood pressure machine and pulse oximeter. To gown for exam. Side rails up. Report given to PRICE Wilson.
--- NOTE | 2017-02-09 20:55 | NUR ---
Pt came from a SNF via S ambulance. Pt was sent for PICC line placement. Pt is AAOx1 which is pt baseline. Pt is confused and agitated. Will continue to monitor. No distress noted.
--- NOTE | 2017-02-09 21:50 | NUR ---
ER Dr. Bai at bedside examining patient.
[2017-02-09] MEDS ORDERED: NACL 0.9% 1,000 ML IV ONE (21:58)
--- NOTE | 2017-02-09 22:00 | NUR ---
# 20 gauge angiocath placed to L hand. Use of asceptic technique. Opsite placed over site. Blood return noted. Blood for lab drawn from site. Flushed with 10 cc of normal saline. No evidence of infiltration noted. Patient tolerated well.
--- NOTE | 2017-02-09 22:10 | NUR ---
Pt is confused and trying to pull out IV. IV secured with Coban. Dr. Bai made aware and cancelled fluids at this time.
--- NOTE | 2017-02-09 22:45 | NUR ---
Pt pulled out IV. Pt has a 10 cm hematoma on R hand. Coban placed on hand to reduce swelling. Dr. Bai made aware. Addendum: 02/09/17 at 2340 by SARAI Approx 10 cm
[2017-02-09 22:59] LABS: BASOPHILS % (AUTO) 0.4 % (0.0-2.0); EOSINOPHILS # (AUTO) 0.3 K/uL (0.0-0.4); EOSINOPHILS % (AUTO) 4.3 % (0.0-4.0); HEMATOCRIT 34.9 % (36-48); HEMOGLOBIN 11.9 g/dL (12.0-16.0); LYMPHOCYTES # (AUTO) 1.2 K/uL (1.0-5.5); LYMPHOCYTES % (AUTO) 17.9 % (20.5-51.5); MEAN CORPUSCULAR HEMOGLOBIN 32 pg (27-31); MEAN CORPUSCULAR HGB CONC 34 % (32-36); MEAN CORPUSCULAR VOLUME 95 fL (79.0-98.0); MONOCYTES # (AUTO) 0.5 K/uL (0.0-1.0); MONOCYTES % (AUTO) 7.3 % (1.7-9.3); NEUTROPHILS # (AUTO) 4.8 K/uL (1.8-7.7); NEUTROPHILS % (AUTO) 70.1 % (40.0-70.0); PLATELET COUNT (AUTO) 331 K/uL (130-430); RED BLOOD CELL COUNT(AUTO) 3.68 MIL/uL (4.2-6.2); RED CELL DISTRIBUTION WIDTH 16.1 % (9.0-15.0); WHITE BLOOD COUNT (AUTO) 6.8 K/uL (4.8-10.8)
[2017-02-09 23:09] LABS: ANION GAP 4 (5-15); CALCIUM 8.6 mg/dL (8.4-11.0); CHLORIDE 105 mmol/L (98-107); GLUCOSE 113 mg/dL (70-99); POTASSIUM 3.9 mmol/L (3.5-5.1); SODIUM SERUM 136 mmol/L (136-145); UREA NITROGEN, BLOOD 31 mg/dL (8-21)
--- NOTE | 2017-02-09 23:15 | NUR ---
Unable to get straight catheter due to pt being agitated and pushing away staff. Dr. Bai made aware.
[2017-02-09 23:20] LABS: ALANINE AMINOTRANSFERASE 29 U/L (12-78); ALBUMIN 2.8 g/dL (3.4-4.8); ASPARTATE AMINOTRANSFERASE 31 U/L (10-37); TOTAL BILIRUBIN 0.3 mg/dL (0.0-1.0); TOTAL PROTEIN, SERUM 6.7 g/dL (6.4-8.3)
[2017-02-09 23:31] LABS: PROTHROMBIN TIME 11.1 SECS (9.5-12.5)
[2017-02-10] MEDS ORDERED: HALOPERIDOL LACTATE 5 MG/ML VIAL IVP PRN
--- NOTE | 2017-02-10 00:15 | NUR ---
Patient will be admitted to care of Dr. Boone. Admitted to Med Surg unit. Will go to room 133A. Summary report printed. Report given to Estella THRASHER.
--- NOTE | 2017-02-10 00:27 | NUR ---
ADMIT NOTE Received pt from ER to the floor with a diagnosis of UTI. Admission process initiated. patient oriented to pain management, safety and call light-teach back done.
--- NOTE | 2017-02-10 00:30 | NUR ---
WOUND CARE/PHOTOS Photos of wounds to left foot were taken and placed in chart. Wounds cleansed with NS and foam dressing applied.
--- NOTE | 2017-02-10 01:00 | NUR ---
NEW IV SITE/IVF/TUBEFEEDING Late entry due to pt. care. IV established to right wrist 22g by charge nurse, PRICE Quintana. Successful upon first attempt. IVF one time order infusing as ordered. Gtube feeding infusing as ordered. Zero residuals noted. Safety and fall precautions in place. Bed alarm on. Will continue to monitor.
[2017-02-10 01:26] VITALS: BP 131/46; PULSE 73; RESP 18; TEMP 96.8; O2SAT 100
--- NOTE | 2017-02-10 02:38 | NUR ---
PAGED/SPOKE TO DR. SHOEMAKER Reported to Dr. Shoemaker that pt. arrived without an IV site because she pulled it out in ER but charge nurse, Lilian RN was able to establish peripheral line. Also reported pt. was medicated with Haldol IVP as ordered PRN for agitation but pt. continues to pull out and bite ID bands, IV line, and G-tube lines. Also reported that ER nurse was unable to obtain UA and urine cx and that pt. is incontinent. Clarified IVF order with Dr. Shoemaker who stated just give the one time dose and he will be here to see pt. in the morning. Orders for restraints given. Will carry out.
[2017-02-10 04:00] VITALS: BP 114/70; PULSE 68; RESP 18; TEMP 96.9; O2SAT 91
--- NOTE | 2017-02-10 04:25 | NUR ---
MRSA MRSA to bilateral nares collected and will be sent to lab.
--- NOTE | 2017-02-10 04:59 | NUR ---
NOTIFIED FAMILY RE: RESTRAINTS Late entry due to pt. care. Family was notified regarding order for restraints due to pt. pulling out IV line and Gtube. Pt.'s daughter, Haleigh Oswald ([phone]) agreed to plan of care (also witnessed by PRICE Littlejohn) and requested for her brother's phone number to be noted in pt.'s chart: Valentin Keyla (pt.'s son) [phone].
--- NOTE | 2017-02-10 05:53 | NUR ---
D/C RESTRAINTS Pt.'s son Valentin Ramires [phone] was notified by Haleigh Oswald (pt.'s daughter) regarding restraints and he is very upset and wants the restraint removed. I explained to him that medication was not effective and pt. has been pulling out IV and lines from ER department and continues to be at risk for injury and disruption of medical care. Valentin stated "I DON'T CARE, TAKE THEM OFF OF HER." We informed him that the restraint will be removed per his request. Haleigh called back to apologize about her brother's response. Will continue to monitor pt.
--- NOTE | 2017-02-10 06:10 | NUR ---
SON AT BEDSIDE/INCONTINENCE CARE Valentin Ramires (pt.'s son) at bedside with patient. Refusing for pt. to continue receiving IVF even after continuously explaining MD orders. He is also very upset about pt. being restrained. Stated "Can we just sedate her?" I explained to Valentin that pt. was medicated with Haldol and the risks associated with heavily medicating pts. He verbalized understanding and continued to explain that he is just very frustrated with his mom being "in and out of the hospital." No other needs at this time. Charge nurse, PRICE Quintana also made aware. Incontinence care was done. Pt. had 1 BM and void. Tolerated well. Safety precautions in place. Call light to right hand. Will continue to monitor.
[2017-02-10] MEDS ORDERED: AMIKACIN SULFATE 500 MG in D5W 100 ML IV ONE (06:30)
--- NOTE | 2017-02-10 07:30 | NUR ---
ENDORSED ORDERS/CLOSING NOTES All needs met. Pt. in no s/s of acute distress. Family at bedside. Safety precautions in place. Bedside report and care endorsed to day shift nurse. Amikacin and urine culture order endorsed to day shift nurse to follow up.
--- NOTE | 2017-02-10 07:48 | NUR ---
Nutrition Update Marco Scale 13 noted. Pt admitted for UTI. Diet: Fibersource HN at 55 ml/hr, Free Water Flush: 30 via GT BMI: 23.2 kg/m2 RD to follow per nutrition care standards.
[2017-02-10 07:55] VITALS: BP 133/73; PULSE 69; RESP 17; TEMP 98.6; O2SAT 95
--- NOTE | 2017-02-10 07:56 | NUR ---
Initial Note Received pt in bed, no s/s of distress or sob noted, pt has no facial grimacing noted for pain, no c/o pain at this time, pt in stable condition. Pt pat, confused, provided pt with reality orientation. IV catheter patent, no signs of infection or infiltration noted, running iv fluids as ordered. Bed at lowest position, call light within reach, will continue to monitor pt for any change, fall precautions in place. Family at bedside, family continues to refuse to have pt on restraints, family at bedside to watch pt, charge nurse aware. Addendum: 02/10/17 at 0758 by Patricia Amado RN noted pt to have impairment on left side, able to move arm on right side but not left, no facial droop noted. Addendum: 02/10/17 at 1809 by Patricia Amado RN g tube patent, flushes, placement verified, dressing changed, skin intact, tolerating feedings.
[2017-02-10] MEDS ORDERED: AMIKACIN SULFATE 400 MG in D5W 100 ML IV SCH (09:00)
--- NOTE | 2017-02-10 10:45 | NUR ---
ROUNDS Pt in bed, no s/s of distress or sob noted, pt has no facial grimacing noted for pain, pt in stable condition, pt resting comfortably. Will continue to monitor pt for any changes.
--- NOTE | 2017-02-10 11:10 | NUR ---
Consult Called consult spoke to Sera Harrell for ESBL and E. Coli
[2017-02-10 11:23] VITALS: Ht 162.6 cm; Wt 60.8 kg
[2017-02-10 11:46] LABS: PROTHROMBIN TIME 10.8 SECS (9.5-12.5)
--- NOTE | 2017-02-10 12:10 | NUR ---
In and Out Catheter In and out catheter was done, aseptic technique used, specimen collected, pt tolerated, about 300ml of cloudy yellow urine obtained.
[2017-02-10 12:57] LABS: BILIRUBIN,URINE NEGATIVE (NEGATIVE); BLOOD, URINE 3+ (NEGATIVE); CLARITY/URINE CLOUDY (CLEAR); COLOR,URINE YELLOW (YELLOW); GLUCOSE,URINE NEGATIVE (NEGATIVE); KETONES,URINE NEGATIVE (NEGATIVE); LEUKOCYTE ESTERASE ,URINE 4+ (NEGATIVE); NITRITE, URINE NEGATIVE (NEGATIVE); PROTEIN URINE NEGATIVE (NEGATIVE); UROBILINOGEN,URINE 0.2 (0.2-1.0)
[2017-02-10 13:00] LABS: RBC,URINE >100 /HPF (0-3)
[2017-02-10 13:01] LABS: BACTERIA,URINE MANY /HPF (None Seen); WBC,URINE >100 /HPF (0-3)
[2017-02-10 13:13] VITALS: BP 129/72; PULSE 68; RESP 17; TEMP 98.1; O2SAT 95
[2017-02-10] MEDS: ERTAPENEM SODIUM 0.5 GM in NS 50 ML IV SCH (13:27)
--- NOTE | 2017-02-10 13:30 | NUR ---
WOUND EVALUATION: Wound Consult received from Dr. Boone. Thank you, Dr. Boone, for the consult. Patient received in a Mckenney Bed with an IsoFlex FELISA mattress (low air-loss therapy initiated), awake, sleepy, confused. Patient is unable to turn in bed independently. Marco Score is a 13. Past Medical History: CVA, Dementia. Recent Labs: WBC 6.8, RBC 3.68, Hgb 11.9, Hct 34.9, BUN 31, Creat 0.90, Gluc 113, Alb 2.8. Intrinsic factors that delay wound healing: Hypoalbuminemia, CVA. Extrinsic factors that delay wound healing: Decreased mobility. Microbiology: Blood Culture x 2, MRSA Screen, and Urine Culture results in progress. Wound Assessment: 1) Left Lateral Malleolus: Unstageable Pressure Ulcer, present on admission. 20% yellow tissue, 75% dark dull red tissue, 5% dark discolor. No odor, scant yellow drainage. Measures 2.0 cm x 1.8 cm x 0.3 cm. Recommend: Cleanse wound with normal saline. Place moisture barrier cream onto britany-wound. Put Venelex ointment onto wound bed. Cover with foam dressing. Perform wound care daily, and as needed for dressing soiling or dislodgement. 2) Left Foot, Lateral Border: Blanchable redness, present on admission. No odor, no drainage. Recommend: Cover with foam dressing for protection. Perform wound care daily, and as needed for dressing soiling or dislodgement. Also recommend: Reposition patient every 2 hours with pillow support and off-load pressure areas with pillows for pressure re-distribution. Offload, elevate and float bilateral feet/heels with pillows at all times. Perform skin care and monitor skin integrity Q shift. Use moisture barrier cream on buttocks and other moisture susceptible areas QID and as needed for soiling. Maintain patient on low air-loss therapy.
[2017-02-10] MEDS ORDERED: BALSAM PERU/CASTOR OIL 60 GM OINT...G. TP PRN (14:30)
[2017-02-10 16:05] VITALS: BP 126/70; PULSE 70; RESP 16; TEMP 97.9; O2SAT 96
--- NOTE | 2017-02-10 18:07 | NUR ---
Closing Note Pt in bed, no s/s of distress or sob noted, pt has no facial grimacing noted for pain, no c/o pain at this time, pt in stable condition. Pt aaox1, confused, provided pt with reality orientation. IV catheter patent, no signs of infection or infiltration noted, running iv fluids as ordered. Bed at lowest position, call light within reach, will endorse care of pt to incoming nurse, fall precautions in place. Pt has a g tube with prescribed settings as ordered, tolerating.
[2017-02-10 19:40] VITALS: BP 137/70; PULSE 70; RESP 16; TEMP 98.5; O2SAT 97
--- NOTE | 2017-02-10 19:40 | NUR ---
Initial Note Received pt in bed, no s/s of distress or sob noted, pt has no facial grimacing indicating pain, pt in stable condition, vss. Pt aaox1, confused, provided pt with reality orientation. IV catheter noted to right wrist, saline lock, no redness or swelling to the site. g tube noted, with clean dressing, no redness around the site. g tube feeding infusing well as ordered, tolerating feedings, hob in upright position. Bed at lowest position, call light within reach, will continue to monitor pt for any changes, fall precautions in place.
--- NOTE | 2017-02-10 21:50 | NUR ---
RN NOTES INFORMED BOTH CHARGE NURSE AND WOODEN BOAT BUILDER THAT PICC LINE NURSE HAS NOT SHOWN UP TODAY. WOODEN BOAT BUILDER STATES THAT PICC LINE NURSE WAS SUPPOSED TO COME TODAY AT 1500 AND NEVER DID. AT THIS POINT, IT IS TOO LATE FOR THEM TO COME. WILL INFORM DAY NURSE TO FOLLOW UP IN AM.
--- NOTE | 2017-02-10 22:05 | NUR ---
ROUNDS PT. RESTING IN BED WITH EYES OPEN, NO S/S OF SOB OR DISTRESS NOTED. NO FACIAL GRIMACING INDICATING ANY PAIN. G TUBE FEEDING CONTINUES TO INFUSE WELL. WILL CONTINUE TO MONITOR FOR ANY CHANGES. SAFETY AND FALL PRECAUTIONS IN PLACE, CALL LIGHT IN REACH, BED ALARM ON.
[2017-02-11] VITALS (7 sets, daily range): BP systolic 122–147; BP diastolic 58–78; PULSE 60–82; RESP 16–26; TEMP 97–98.7; O2SAT 97–100
--- NOTE | 2017-02-11 00:13 | NUR ---
ROUNDS PT. RESTING IN BED WITH EYES CLOSED, CHEST RISE AND FALL NOTED. NO S/S OF SOB OR DISTRESS NOTED. NO FACIAL GRIMACING INDICATING ANY PAIN. G TUBE FEEDING CONTINUES TO INFUSE WELL. WILL CONTINUE TO MONITOR FOR ANY CHANGES. SAFETY AND FALL PRECAUTIONS IN PLACE, CALL LIGHT IN REACH, BED ALARM ON.
--- NOTE | 2017-02-11 04:01 | NUR ---
ROUNDS PT. RESTING IN BED WITH EYES OPEN.10 CC RESIDUAL NOTED IN G TUBE, FLUSHED WITH 30 CC FREE WATER, NO RESISTANCE NOTED. FEEDING CONTINUES TO INFUSE WELL. NO SIGNS OF ASPIRATION. HOB IN UP RIGHT POSITION. PT. TRYING TO PUSH MY HAND AWAY I WAS FLUSHING HER G TUBE, REMINDED PT. WHY I AM FLUSHING HER G TUBE AND ASKED IF IT IS OKAY FOR ME TO CONTINUE, PT. STATED YES, BUT CONTINUED TO TRY AND PUSH MY HAND AWAY. PLACED PT. IN COMFORTABLE POSITION, SUPPORTED WELL WITH PILLOWS AND COVERED WITH BLANKETS FOR COMFORT. WILL CONTINUE TO MONITOR FOR CHANGES. SAFETY AND FALL PRECAUTIONS IN PLACE. CALL LIGHT IN REACH.
--- NOTE | 2017-02-11 06:38 | NUR ---
CLOSING NOTE PT. RESTING IN BED WITH EYES CLOSED. NO S/S OF SOB OR DISTRESS NOTED. NO FACIAL GRIMACING INDICATING PAIN. G TUBE FEEDING INFUSING WELL. PT. REPOSITIONED AND LEFT IN A COMFORTABLE POSITION. ALL NECESSARY NEEDS WERE MET THROUGHOUT THE SHIFT. SAFETY, FALL AND CONTACT PRECAUTIONS WERE MAINTAINED. WILL ENDORSE CARE TO AM NURSE. CALL LIGHT IN REACH, BED ALARM ON.
--- NOTE | 2017-02-11 07:30 | NUR ---
AM ROUNDS PATIENT RESTING IN BED, AWAKE, ALERT AND ORIENTED X1, REORIENTED TO PLACE, TIME AND EVENT, PATIENT DENIES PAIN, PATIENT REFUSED PHYSICAL EXAM AT THIS TIME, WILL FOLLOW UP, STABLE CONDITION AT THIS TIME, BED IN LOWEST POSITION, THREE SIDE RAILS UP, BED ALARM ON, FALL, ASPIRATION AND ISOLATION PRECAUTIONS IN PLACE, BED CLOSE TO NURSE'S STATION.
[2017-02-11] MEDS: BALSAM PERU/CASTOR OIL 60 GM OINT...G. TP SCH (09:12)
--- NOTE | 2017-02-11 09:15 | NUR ---
RN ROUNDS PATIENT RESTING IN BED, AWAKE, DENIES PAIN, TOLERATING TUBEFEEDING WELL, NO OTHER NEEDS AT THIS TIME, BED IN LOWEST POSITION, THREE SIDE RAILS UP, BED ALARM ON, BED CLOSE TO NURSE'S STATION, FALL, ASPIRATION AND ISOLATION PRECAUTIONS IN PLACE, WILL CONTINUE TO MONITOR.
--- NOTE | 2017-02-11 10:12 | NUR ---
DR LUGO PAGED REGARDING POSITIVE MRSA RESULTS.
--- NOTE | 2017-02-11 10:22 | NUR ---
DR LUGO CALL BACK STATED TO NOTIFY DR SHOEMAKER OF LAB RESULTS SHE IS NOT FOLLOWING THIS PATIENT, DR SHOEMAKER PAGED AT THIS TIME.
--- NOTE | 2017-02-11 10:30 | NUR ---
DR SHOEMAKER CALL BACK STATED TO INFORM DR SERRANO.
--- NOTE | 2017-02-11 11:30 | NUR ---
PICC LINE PLACEMENT BY DMITRI THRASHER, RIGHT BASILIC, STERILE TECHNIQUE, PATIENT TOLERATED WELL, BIOPATCH PLACE, TEGADERM PLACED OVER THE SITE, WILL OBTAIN A CHEST X RAY TO CONFIRM PLACEMENT PRIOR TO USE.
[2017-02-11] MEDS: ERTAPENEM SODIUM 0.5 GM in NS 50 ML IV SCH (11:57)
--- NOTE | 2017-02-11 13:40 | NUR ---
RN ROUNDS PATIENT RESTING IN BED, EYES CLOSED, BREATHING IS EVEN AND UNLABORED, NO SIGNS OF DISTRESS AT THIS TIME, FAMILY IS AT BEDSIDE, UPDATES GIVEN, NO OTHER NEEDS AT THIS TIME, PATIENT BED IS IN LOWEST POSITION, THREE SIDE RAILS UP, BED ALARM ON, FALL, ASPIRATION, AND ISOLATION PRECAUTIONS IN PLACE, BED CLOSE TO NURSE'S STATION.
--- NOTE | 2017-02-11 14:20 | NUR ---
RN ROUNDS PATIENT RESTING IN BED, AWAKE, BEING ASSISTED BY SUJATHA DELATORRE, PATIENT DENIES PAIN, NO OTHER NEEDS AT THIS TIME, BED IN LOWEST POSITION, THREE SIDE RAILS UP, BED ALARM ON, FALL, ASPIRATION AND ISOLATION PRECAUTIONS IN PLACE, WILL CONTINUE TO MONITOR, BED CLOSE TO NURSE'S STATION.
--- NOTE | 2017-02-11 14:34 | NUR ---
DR SERRANO ROUNDS HERE TO SEE THE PATIENT, NOTIFIED OF MRSA POSITIVE RESULT, WILL FOLLOW UP WITH ANY NEW ORDERS.
--- NOTE | 2017-02-11 16:18 | NUR ---
WOUND CARE Wound Assessment: 1) Left Lateral Malleolus: Unstageable Pressure Ulcer, present on admission. 20% yellow tissue, 75% dark dull red tissue, 5% dark discolor. No odor, scant yellow drainage. Measures 2.0 cm x 1.8 cm x 0.3 cm. Cleansed wound with normal saline. Placed moisture barrier cream onto britany-wound. Put Venelex ointment onto wound bed. Covered with foam dressing. Performing wound care daily, and as needed for dressing soiling or dislodgement. 2) Left Foot, Lateral Border: Blanchable redness, present on admission. No odor, no drainage. Covered with foam dressing for protection. Performing wound care daily, and as needed for dressing soiling or dislodgement. Repositioning patient every 2 hours with pillow support and off-loading pressure areas with pillows for pressure re-distribution. Offloading, elevating and floating bilateral feet/heels with pillows at all times. Performing skin care and monitor skin integrity Q shift. Using moisture barrier cream on buttocks and other moisture susceptible areas QID and as needed for soiling. Maintaining patient on low air-loss therapy.
--- NOTE | 2017-02-11 17:20 | NUR ---
RN ROUNDS PATIENT RESTING IN BED, DENIES PAIN, NO OTHER NEEDS AT THIS TIME, BED IN LOWEST POSITION, THREE SIDE RAILS UP, BED ALARM ON, FALL, ASPIRATION, AND ISOLATION PRECAUTIONS IN PLACE, BED CLOSE TO NURSES'S STATION, WILL CONTINUE TO MONITOR.
--- NOTE | 2017-02-11 18:26 | NUR ---
CLOSING NOTES PATIENT RESTING IN BED, AWAKE, DENIES PAIN, NO SIGNS OF DISTRESS, ALL NEEDS MET, BED IN LOWEST POSITION, THREE SIDE RAILS UP, BED ALARM ON, BED CLOSE TO NURSE'S STATION, FALL, ASPIRATION, AND ISOLATION PRECAUTIONS IN PLACE, WILL ENDORSE REPORT TO NOC SHIFT NURSE.
[2017-02-11] MEDS ORDERED: ACETAMINOPHEN 325 MG TABLET GT PRN (19:30)
[2017-02-11] MEDS ORDERED: ALBUTEROL SULFATE 0.083% 2.5 MG/3 ML VIAL.NEB INH PRN (19:30)
--- NOTE | 2017-02-11 19:40 | NUR ---
Initial Note Received pt in bed, no s/s of distress or sob noted, pt has no facial grimacing indicating pain, pt in stable condition, vss. Pt aaox1, confused, provided pt with reality orientation. IV catheter noted to right wrist, saline lock, no redness or swelling to the site. right upper arm picc noted, double lumen, both flush well with good blood return. g tube noted, with clean dressing, no redness around the site. g tube feeding infusing well as ordered, tolerating feedings, hob in upright position. Bed at lowest position, call light within reach, will continue to monitor pt for any changes, fall precautions in place. call light in reach, alarm on.
[2017-02-11] MEDS ORDERED: NON-FORMULARY MEDICATION (Amino Acids/Protein Hydrolys (Pro-Stat Liquid) 30 ML) GT SCH (21:00)
[2017-02-11] MEDS ORDERED: DONEPEZIL HCL 5 MG TABLET (ARICEPT) GT SCH (21:00)
[2017-02-11] MEDS ORDERED: APIXABAN 2.5 MG TABLET PO SCH (21:00)
[2017-02-11] MEDS: MEMANTINE HCL 5 MG TABLET GT SCH (21:48)
[2017-02-11] MEDS: MUPIROCIN 2% TOPICAL OINTMENT 22 GM TP SCH (21:48)
--- NOTE | 2017-02-11 22:05 | NUR ---
ROUNDS PT. RESTING IN BED WITH EYES OPEN, NO S/S OF SOB OR DISTRESS. NO FACIAL GRIMACING INDICATING ANY PAIN. G TUBE FEEDING INFUSING WELL, NO ASPIRATION NOTED. NO RESIDUALS, 30 CC FREE WATER FLUSH DONE. NO RESISTANCE NOTED. WILL CONTINUE TO MONITOR FOR CHANGES. SAFETY AND FALL PRECAUTIONS IN PLACE. CALL LIGHT IN REACH, BED ALARM ON.
--- NOTE | 2017-02-12 00:11 | NUR ---
ROUNDS PT. RESTING IN BED WITH EYES OPEN. NO S/S OF SOB OR DISTRESS NOTED. NO FACIAL GRIMACING FOR PAIN. PT. REPOSITIONED AND SUPPORTED WELL WITH PILLOWS. HEELS ARE ELEVATED. HOB IN UPRIGHT POSITION AND G TUBE FEEDING INFUSING WELL. NO ASPIRATION NOTED. WILL CONTINUE TO MONITOR FOR CHANGES. SAFETY, FALL AND CONTACT PRECAUTIONS IN PLACE, CALL LIGHT IN REACH.
[2017-02-12 00:58] VITALS: BP 162/76; PULSE 89; RESP 18; TEMP 98.7; O2SAT 93
--- NOTE | 2017-02-12 02:00 | NUR ---
rounds pt. removed iv access from right wrist. catheter intact. no signs of heavy bleeding. pt. denies pain. picc line access remains intact. will continue to monitor for changes. safety and fall precautions in place, call light in reach. bed alarm on.
--- NOTE | 2017-02-12 06:45 | NUR ---
CLOSING NOTE PT. PROVIDED WITH HYGIENE CARE. NEW LINENS PROVIDED. REPOSITIONED AND SUPPORTED WELL WITH PILLOWS. LEFT COMFORTABLE. G TUBE FEEDING INFUSING WELL, PT. HOB IN UPRIGHT POSITION. G TUBE FLUSHED WITH 30 CC FREE WATER, NO RESISTANCE NOTED. NO RESIDUALS NOTED. ALL NECESSARY NEEDS WERE MET THROUGHOUT THE SHIFT. SAFETY, FALL AND ASPIRATION PRECAUTIONS WERE MAINTAINED. WILL ENDORSE CARE TO AM NURSE. CALL LIGHT IN REACH, BED ALARM ON.
[2017-02-12 08:00] VITALS: BP 117/74; PULSE 85; RESP 16; TEMP 98; O2SAT 95
[2017-02-12] MEDS ORDERED: MULTIVITAMINS TAB 1 TABLET GT SCH (09:00)
[2017-02-12] MEDS ORDERED: ATENOLOL 50 MG TABLET (TENORMIN) GT SCH (09:00)
[2017-02-12] MEDS ORDERED: ASCORBIC ACID 500 MG TABLET GT SCH (09:00)
[2017-02-12] MEDS ORDERED: LEVOTHYROXINE SODIUM 0.088 MG TABLET GT SCH (09:00)
[2017-02-12] MEDS ORDERED: [UNRECOGNIZED DRUG - OTHER] TP SCH (09:00)
[2017-02-12] MEDS ORDERED: FERROUS SULFATE 300 MG/5 ML UDC GT SCH (09:00)
[2017-02-12] MEDS ORDERED: OMEPRAZOLE 20 MG CAPSULE.DR (PriLOSEC) GT SCH (09:00)
[2017-02-12] MEDS: MEMANTINE HCL 5 MG TABLET GT SCH (09:12)
[2017-02-12] MEDS: MUPIROCIN 2% TOPICAL OINTMENT 22 GM TP SCH (09:13)
[2017-02-12] MEDS: BALSAM PERU/CASTOR OIL 60 GM OINT...G. TP SCH (09:14)
--- NOTE | 2017-02-12 09:15 | NUR ---
RN ROUNDS PATIENT RESTING IN BED, AWAKE, DENIES PAIN, EDUCATED ON MEDICATIONS, PATIENT STATED OK, G TUBE RESIDUAL OUTPUT NOTED TO BE 0ML AT THIS TIME, PATIENT TOLERATED MEDICATION ADMINISTRATION WELL, NO OTHER NEEDS AT THIS TIME, BED IN LOWEST POSITION, THREE SIDE RAILS UP, BED ALARM ON, FALL, ASPIRATION, ISOLATION PRECAUTIONS IN PLACE, BED CLOSE TO NURSE'S STATION .
[2017-02-12 11:33] VITALS: BP 117/74; PULSE 85; RESP 16; TEMP 98; O2SAT 94
--- NOTE | 2017-02-12 11:45 | NUR ---
CALLED FAMILY REGARDING NOTIFICATION OF DISCHARGE, LEFT VOICEMAIL FOR TERA ARZOLA.
--- NOTE | 2017-02-12 12:01 | NUR ---
DC PLANNING: RECEIVED DC ORDER TO GO BACK TO [facility] ROOM 101-A, PLS GIVE REPORT TO RN TEL# [phone], ARRANGED BLS TRANSPORTATION VIA [facility]# , PACKET AT THE NURSE'S STATION, KRYSTA THRASHER AWARE. Addendum: 02/12/17 at 1230 by Kathi Ly RN CALLED [facility]EL# [phone] AND ASKED SALLY GOMEZ KITCHEN AND BATH DESIGNER FOR A TRANSPORTATION AUTH, WHICH [facility] IS REQUESTING--HE GAVE AUTH# [id number] BERNARD, ROXY TALBERT OF [facility] AND GAVE THE AUTH. Addendum: 02/12/17 at 1303 by Kathi Ly RN CALLED AND CANCELLED [facility], PATRICIA AT [facility] RECOMMENDED [facility] BECAUSE THEY ARE CONTRACTED TO THEM. CALLED [facility]# , ARRANGED BLS ASSEMBLER AT [phone]. KRYSTA THRASHER AWARE.
[2017-02-12 12:05] VITALS: BP 149/71; PULSE 76; RESP 17; TEMP 98.3; O2SAT 97
[2017-02-12] MEDS: ERTAPENEM SODIUM 0.5 GM in NS 50 ML IV SCH (12:05)
--- NOTE | 2017-02-12 12:05 | NUR ---
RN ROUNDS PATIENT RESTING IN BED, AWAKE, DENIES PAIN, NO OTHER NEEDS AT THIS TIME, IV ANTIBIOTIC HUNG AND INFUSING WELL, BED IN LOWEST POSITION, THREE SIDE RAILS UP, BED ALARM ON, FALL, ASPIRATION, AND ISOLATION PRECAUTIONS IN PLACE, WILL CONTINUE TO MONITOR, BED CLOSE TO NURSE'S STATION.
--- NOTE | 2017-02-12 13:34 | NUR ---
CALLED FAMILY SPOKE WITH PATIENT GRANDDAUGHTER SHREYA REGARDING DISCHARGE, STATED OK FOR DISCHARGE, UPDATES GIVEN ABOUT PATIENT STATUS WELL.
--- NOTE | 2017-02-12 14:09 | NUR ---
DR MAGGIE ADAMSON NOTIFIED OF MICROBIOLOGY RESULTS, NO NEW ORDERS AT THIS TIME.
--- NOTE | 2017-02-12 14:45 | NUR ---
PT TRANSFERRED Report given to VERONICA THRASHER at [facility]. Transfer packet with Transfer Orders and Medication Reconciliation form given to EMT with report. Exitcare provided. [facility] ID band removed, replaced with ID band with pt's name and . All belongings sent with patient. Patient left floor via gurney escorted by EMT in no distress.
== END 2017-02-12 14:45 | DRG 690 ==
LOC: SED 20:39 → SMU 23:49 → STU 02-10 00:15 → SMU 02-11 09:11
PROVIDERS: ADMIT Internal Medicine Hospice and Palliative Medicine; ATTEND Internal Medicine Hospice and Palliative Medicine
PROC: 02HV33Z Insertion of Infusion Device into Superior Vena Cava, Percutaneous Approach (ICD-10-PCS; principal; 2017-02-11)
PROC: B548ZZA Ultrasonography of Superior Vena Cava, Guidance (ICD-10-PCS; 2017-02-11)
DX: N39.0 Urinary tract infection, site not specified (principal); I69.354 Hemiplegia and hemiparesis following cerebral infarction affecting left non-dominant side; E44.1 Mild protein-calorie malnutrition; B96.20 Unspecified Escherichia coli [E. coli] as the cause of diseases classified elsewhere; F03.90 Unspecified dementia, unspecified severity, without behavioral disturbance, psychotic disturbance, mood disturbance, and anxiety; I10 Essential (primary) hypertension; D64.9 Anemia, unspecified; R13.10 Dysphagia, unspecified; E86.0 Dehydration; M19.90 Unspecified osteoarthritis, unspecified site; Z16.12 Extended spectrum beta lactamase (ESBL) resistance; Z78.9 Other specified health status; Z93.1 Gastrostomy status; Z88.0 Allergy status to penicillin; Z22.322 Carrier or suspected carrier of Methicillin resistant Staphylococcus aureus
CPT/HCPCS: 36415; 71010; 80053; 81000-TC; 83605; 85025; 85610-TC; 85730-TC; 87040-TC; 87081; 87086; 87186-TC; C1751; C1769; J0278; J1335; J1630; J7030; J7050; J7060

== ENCOUNTER 2017-09-06 13:44 | Emergency (ER) | payer MEDICARE ==
[~2017-09-06] VITALS: Ht 165.1 cm; Wt 63.5 kg
[2017-09-06 13:44] VITALS: BP_SYST 131
[~2017-09-06 13:44] MED LIST changes: -GUAI5SYR PO
[2017-09-06] MEDS ORDERED: GASTROGRAFIN 120 ML ONE (14:29)
== END 2017-09-06 15:00 | disposition home or self-care (01) ==
LOC: SED 13:44
DX: K94.23 Gastrostomy malfunction (principal); I10 Essential (primary) hypertension; K21.9 Gastro-esophageal reflux disease without esophagitis; F03.90 Unspecified dementia, unspecified severity, without behavioral disturbance, psychotic disturbance, mood disturbance, and anxiety; Z86.73 Personal history of transient ischemic attack (TIA), and cerebral infarction without residual deficits; Z79.899 Other long term (current) drug therapy; Z88.0 Allergy status to penicillin; Z91.040 Latex allergy status
CPT/HCPCS: 43760; 74240; 99284; Q9963

== ENCOUNTER 2017-10-19 17:49 | Inpatient (IN) | payer MEDICARE ==
[~2017-10-19] VITALS: Ht 162.6 cm; Wt 64.9 kg
[2017-10-19 17:59] VITALS: BP_SYST 136
[2017-10-19] MEDS ORDERED: MAGN400O4 GT (18:13)
[2017-10-19] MEDS ORDERED: FER300L GT (18:13)
[2017-10-19 18:41] LABS: BASOPHILS % (AUTO) 0.6 % (0.0-2.0); EOSINOPHILS # (AUTO) 0.3 K/uL (0.0-0.4); EOSINOPHILS % (AUTO) 4.8 % (0.0-4.0); HEMATOCRIT 41.8 % (36-48); HEMOGLOBIN 13.8 g/dL (12.0-16.0); LYMPHOCYTES # (AUTO) 1.2 K/uL (1.0-5.5); LYMPHOCYTES % (AUTO) 19.5 % (20.5-51.5); MEAN CORPUSCULAR HEMOGLOBIN 33 pg (27-31); MEAN CORPUSCULAR HGB CONC 33 % (32-36); MEAN CORPUSCULAR VOLUME 100 fL (79.0-98.0); MONOCYTES # (AUTO) 0.4 K/uL (0.0-1.0); MONOCYTES % (AUTO) 7.3 % (1.7-9.3); NEUTROPHILS # (AUTO) 4.2 K/uL (1.8-7.7); NEUTROPHILS % (AUTO) 67.8 % (40.0-70.0); PLATELET COUNT (AUTO) 261 K/uL (130-430); RED BLOOD CELL COUNT(AUTO) 4.19 MIL/uL (4.2-6.2); RED CELL DISTRIBUTION WIDTH 13.3 % (9.0-15.0); WHITE BLOOD COUNT (AUTO) 6.1 K/uL (4.8-10.8)
[2017-10-19 18:57] LABS: PROTHROMBIN TIME 10.4 SECS (9.5-12.5)
[2017-10-19 19:03] LABS: ANION GAP < 3 (5-15); CALCIUM 8.7 mg/dL (8.4-11.0); CHLORIDE 104 mmol/L (98-107); CREATININE 0.91 mg/dL (0.55-1.30); GLUCOSE 93 mg/dL (70-99); SODIUM SERUM 137 mmol/L (136-145); UREA NITROGEN, BLOOD 39 mg/dL (8-21)
[2017-10-19 19:07] LABS: ALANINE AMINOTRANSFERASE 28 U/L (12-78); ALBUMIN 3.2 g/dL (3.4-4.8); ASPARTATE AMINOTRANSFERASE 21 U/L (10-37); TOTAL BILIRUBIN 0.3 mg/dL (0.0-1.0)
[2017-10-19] MEDS ORDERED: MILK OF MAGNESIA 30 ML UDC GT PRN (21:45)
[2017-10-19] MEDS ORDERED: ACETAMINOPHEN 325 MG TABLET GT PRN (21:45)
[2017-10-19 22:19] LABS: HEMATOCRIT 42.1 % (36-48); HEMOGLOBIN 13.9 g/dL (12.0-16.0)
[2017-10-19 22:20] VITALS: BP_SYST 153
[2017-10-19] MEDS: D5NS 1,000 ML IV SCH (22:58)
[2017-10-19] MEDS: PANTOPRAZOLE SODIUM 40 MG/VIAL (PROTONIX) IVP SCH (23:06)
[2017-10-20] VITALS: BP_SYST 143
[2017-10-20 06:25] LABS: HEMATOCRIT 39.5 % (36-48); HEMOGLOBIN 13.4 g/dL (12.0-16.0)
[2017-10-20] MEDS: LEVOTHYROXINE SODIUM 0.088 MG TABLET GT SCH (07:00)
[2017-10-20 08:01] VITALS: BP_SYST 144
[2017-10-20 08:08] VITALS: BP_SYST 120
[2017-10-20] MEDS: MEMANTINE HCL 5 MG TABLET GT SCH ×2 (09:00→21:18)
[2017-10-20] MEDS ORDERED: FERROUS SULFATE 300 MG/5 ML UDC GT SCH (09:00)
[2017-10-20] MEDS: ATENOLOL 50 MG TABLET (TENORMIN) GT SCH (09:00)
[2017-10-20] MEDS ORDERED: MIDAZOLAM HCL 5 MG/5 ML VIAL ONE (09:14)
[2017-10-20] MEDS: MEPERIDINE HCL/PF 100 MG/ML AMP ONE ×3 (10:16→10:22)
[2017-10-20] MEDS: MIDAZOLAM HCL 5 MG/5 ML VIAL ONE ×3 (10:16→10:22)
[2017-10-20 13:01] VITALS: BP_SYST 117
[2017-10-20] MEDS: D5NS 1,000 ML IV SCH ×2 (13:08→21:17)
[2017-10-20] MEDS: FERROUS SULFATE 300 MG/5 ML UDC GT SCH (13:21)
[2017-10-20] MEDS: ASCORBIC ACID 500 MG TABLET GT SCH (13:21)
[2017-10-20] MEDS: PANTOPRAZOLE SODIUM 40 MG/VIAL (PROTONIX) IVP SCH ×2 (13:21→21:18)
[2017-10-20] MEDS ORDERED: NALOXONE HCL 0.4 MG/ML AMP (NARCAN) IVP ONE (13:45)
[2017-10-20] MEDS ORDERED: FLUMAZENIL 0.1 MG/ML IVP ONE (13:45)
[2017-10-20 14:29] LABS: HEMATOCRIT 35.9 % (36-48); HEMOGLOBIN 12.2 g/dL (12.0-16.0)
[2017-10-20 16:00] VITALS: BP_SYST 139
[2017-10-20 20:00] VITALS: BP_SYST 140
[2017-10-20] MEDS: DONEPEZIL HCL 5 MG TABLET (ARICEPT) GT SCH (21:17)
[2017-10-20 21:56] LABS: HEMATOCRIT 37.2 % (36-48); HEMOGLOBIN 12.3 g/dL (12.0-16.0)
[2017-10-21 00:45] VITALS: BP_SYST 113
[2017-10-21] MEDS: LEVOTHYROXINE SODIUM 0.088 MG TABLET GT SCH (06:21)
[2017-10-21 07:00] LABS: HEMATOCRIT 37.4 % (36-48); HEMOGLOBIN 12.7 g/dL (12.0-16.0)
[2017-10-21] MEDS: D5NS 1,000 ML IV SCH ×2 (07:21→19:05)
[2017-10-21 08:37] VITALS: BP_SYST 113
[2017-10-21] MEDS ORDERED: VANCOMYCIN HCL 1,000 MG in NS 250 ML IV SCH (09:00)
[2017-10-21] MEDS: ASCORBIC ACID 500 MG TABLET GT SCH (10:35)
[2017-10-21] MEDS: ATENOLOL 50 MG TABLET (TENORMIN) GT SCH (10:35)
[2017-10-21] MEDS: PANTOPRAZOLE SODIUM 40 MG/VIAL (PROTONIX) IVP SCH ×2 (10:36→20:52)
[2017-10-21] MEDS: MEMANTINE HCL 5 MG TABLET GT SCH ×2 (10:36→20:52)
[2017-10-21] MEDS: FERROUS SULFATE 300 MG/5 ML UDC GT SCH (10:38)
[2017-10-21] MEDS: VANCOMYCIN HCL 1,000 MG in D5W 250 ML IV SCH (10:39)
[2017-10-21 12:00] VITALS: BP_SYST 145
[2017-10-21 14:14] LABS: HEMATOCRIT 36.3 % (36-48); HEMOGLOBIN 12.3 g/dL (12.0-16.0)
[2017-10-21 16:00] VITALS: BP_SYST 138
[2017-10-21 20:00] VITALS: BP_SYST 140
[2017-10-21] MEDS: DONEPEZIL HCL 5 MG TABLET (ARICEPT) GT SCH (20:52)
[2017-10-21 22:01] LABS: HEMATOCRIT 37.5 % (36-48); HEMOGLOBIN 12.3 g/dL (12.0-16.0)
[2017-10-22] VITALS: BP_SYST 145
[2017-10-22] MEDS: D5NS 1,000 ML IV SCH ×3 (04:58→19:45)
[2017-10-22] MEDS: LEVOTHYROXINE SODIUM 0.088 MG TABLET GT SCH (06:05)
[2017-10-22 07:20] LABS: BASOPHILS % (AUTO) 0.4 % (0.0-2.0); EOSINOPHILS # (AUTO) 0.3 K/uL (0.0-0.4); EOSINOPHILS % (AUTO) 5.2 % (0.0-4.0); HEMATOCRIT 35.5 % (36-48); HEMOGLOBIN 12.1 g/dL (12.0-16.0); LYMPHOCYTES # (AUTO) 1.3 K/uL (1.0-5.5); LYMPHOCYTES % (AUTO) 20.6 % (20.5-51.5); MEAN CORPUSCULAR HEMOGLOBIN 34 pg (27-31); MEAN CORPUSCULAR HGB CONC 34 % (32-36); MEAN CORPUSCULAR VOLUME 99 fL (79.0-98.0); MONOCYTES # (AUTO) 0.7 K/uL (0.0-1.0); MONOCYTES % (AUTO) 10.3 % (1.7-9.3); NEUTROPHILS # (AUTO) 4.1 K/uL (1.8-7.7); NEUTROPHILS % (AUTO) 63.5 % (40.0-70.0); PLATELET COUNT (AUTO) 199 K/uL (130-430); RED BLOOD CELL COUNT(AUTO) 3.57 MIL/uL (4.2-6.2); RED CELL DISTRIBUTION WIDTH 13.7 % (9.0-15.0); WHITE BLOOD COUNT (AUTO) 6.4 K/uL (4.8-10.8)
[2017-10-22 07:51] LABS: ANION GAP 5 (5-15); CALCIUM 8.3 mg/dL (8.4-11.0); CHLORIDE 110 mmol/L (98-107); CREATININE 0.81 mg/dL (0.55-1.30); POTASSIUM 4.1 mmol/L (3.5-5.1); SODIUM SERUM 139 mmol/L (136-145); UREA NITROGEN, BLOOD 27 mg/dL (8-21)
[2017-10-22 07:55] LABS: GLUCOSE 130 mg/dL (70-99)
[2017-10-22 08:26] VITALS: BP_SYST 120
[2017-10-22] MEDS: ASCORBIC ACID 500 MG TABLET GT SCH (08:57)
[2017-10-22] MEDS: FERROUS SULFATE 300 MG/5 ML UDC GT SCH (08:57)
[2017-10-22] MEDS: MEMANTINE HCL 5 MG TABLET GT SCH ×2 (08:57→21:53)
[2017-10-22] MEDS: ATENOLOL 50 MG TABLET (TENORMIN) GT SCH (08:58)
[2017-10-22] MEDS: VANCOMYCIN HCL 1,000 MG in D5W 250 ML IV SCH (08:58)
[2017-10-22] MEDS: PANTOPRAZOLE SODIUM 40 MG/VIAL (PROTONIX) IVP SCH ×2 (08:59→21:52)
[2017-10-22 11:56] VITALS: BP_SYST 115
[2017-10-22 17:01] VITALS: BP_SYST 132
[2017-10-22] MEDS: DONEPEZIL HCL 5 MG TABLET (ARICEPT) GT SCH (21:53)
[2017-10-23 00:37] VITALS: BP_SYST 138
[2017-10-23 01:23] VITALS: BP_SYST 138
[2017-10-23] MEDS: LEVOTHYROXINE SODIUM 0.088 MG TABLET GT SCH (05:57)
[2017-10-23] MEDS: D5NS 1,000 ML IV SCH ×2 (05:58→22:49)
[2017-10-23 06:50] LABS: CALCIUM 8.3 mg/dL (8.4-11.0); CHLORIDE 114 mmol/L (98-107); CREATININE 0.83 mg/dL (0.55-1.30); GLUCOSE 108 mg/dL (70-99); SODIUM SERUM 144 mmol/L (136-145); UREA NITROGEN, BLOOD 24 mg/dL (8-21)
[2017-10-23 06:53] LABS: BASOPHILS % (AUTO) 0.1 % (0.0-2.0); EOSINOPHILS # (AUTO) 0.4 K/uL (0.0-0.4); EOSINOPHILS % (AUTO) 5.9 % (0.0-4.0); HEMATOCRIT 35.9 % (36-48); LYMPHOCYTES # (AUTO) 1.6 K/uL (1.0-5.5); LYMPHOCYTES % (AUTO) 26.5 % (20.5-51.5); MEAN CORPUSCULAR HEMOGLOBIN 33 pg (27-31); MEAN CORPUSCULAR HGB CONC 33 % (32-36); MEAN CORPUSCULAR VOLUME 100 fL (79.0-98.0); MONOCYTES # (AUTO) 0.7 K/uL (0.0-1.0); MONOCYTES % (AUTO) 10.9 % (1.7-9.3); NEUTROPHILS # (AUTO) 3.3 K/uL (1.8-7.7); NEUTROPHILS % (AUTO) 56.6 % (40.0-70.0); PLATELET COUNT (AUTO) 170 K/uL (130-430); RED BLOOD CELL COUNT(AUTO) 3.59 MIL/uL (4.2-6.2); RED CELL DISTRIBUTION WIDTH 13.8 % (9.0-15.0)
[2017-10-23 07:05] LABS: ANION GAP 3 (5-15)
[2017-10-23] MEDS: VANCOMYCIN HCL 1,000 MG in D5W 250 ML IV SCH (08:58)
[2017-10-23] MEDS: PANTOPRAZOLE SODIUM 40 MG/VIAL (PROTONIX) IVP SCH ×2 (09:05→22:56)
[2017-10-23 09:20] VITALS: BP_SYST 118
[2017-10-23] MEDS: ATENOLOL 50 MG TABLET (TENORMIN) GT SCH (09:27)
[2017-10-23] MEDS: FERROUS SULFATE 300 MG/5 ML UDC GT SCH (09:27)
[2017-10-23] MEDS: ASCORBIC ACID 500 MG TABLET GT SCH (09:28)
[2017-10-23] MEDS: MEMANTINE HCL 5 MG TABLET GT SCH ×2 (09:28→22:51)
[2017-10-23 12:00] VITALS: BP_SYST 120
[2017-10-23 16:00] VITALS: BP_SYST 192
[2017-10-23 20:00] VITALS: BP_SYST 149
[2017-10-23] MEDS: DONEPEZIL HCL 5 MG TABLET (ARICEPT) GT SCH (22:49)
[2017-10-24 02:24] VITALS: BP_SYST 128
[2017-10-24] MEDS: D5NS 1,000 ML IV SCH ×2 (06:08→21:45)
[2017-10-24] MEDS: LEVOTHYROXINE SODIUM 0.088 MG TABLET GT SCH (06:08)
[2017-10-24 06:30] LABS: BASOPHILS % (AUTO) 0.4 % (0.0-2.0); EOSINOPHILS # (AUTO) 0.4 K/uL (0.0-0.4); EOSINOPHILS % (AUTO) 5.3 % (0.0-4.0); HEMATOCRIT 35.7 % (36-48); HEMOGLOBIN 11.6 g/dL (12.0-16.0); LYMPHOCYTES # (AUTO) 1.2 K/uL (1.0-5.5); MEAN CORPUSCULAR HEMOGLOBIN 33 pg (27-31); MEAN CORPUSCULAR HGB CONC 33 % (32-36); MEAN CORPUSCULAR VOLUME 100 fL (79.0-98.0); MONOCYTES # (AUTO) 0.5 K/uL (0.0-1.0); MONOCYTES % (AUTO) 7.4 % (1.7-9.3); NEUTROPHILS # (AUTO) 4.7 K/uL (1.8-7.7); NEUTROPHILS % (AUTO) 69.9 % (40.0-70.0); PLATELET COUNT (AUTO) 165 K/uL (130-430); RED BLOOD CELL COUNT(AUTO) 3.57 MIL/uL (4.2-6.2); RED CELL DISTRIBUTION WIDTH 13.9 % (9.0-15.0); WHITE BLOOD COUNT (AUTO) 6.8 K/uL (4.8-10.8)
[2017-10-24 06:40] LABS: ANION GAP 6 (5-15); CALCIUM 8.3 mg/dL (8.4-11.0); CHLORIDE 110 mmol/L (98-107); CREATININE 0.81 mg/dL (0.55-1.30); GLUCOSE 122 mg/dL (70-99); POTASSIUM 4.4 mmol/L (3.5-5.1); SODIUM SERUM 145 mmol/L (136-145); UREA NITROGEN, BLOOD 26 mg/dL (8-21)
[2017-10-24 08:00] VITALS: BP_SYST 138
[2017-10-24] MEDS: PANTOPRAZOLE SODIUM 40 MG/VIAL (PROTONIX) IVP SCH ×2 (09:32→22:26)
[2017-10-24] MEDS: ATENOLOL 50 MG TABLET (TENORMIN) GT SCH (09:33)
[2017-10-24] MEDS: MEMANTINE HCL 5 MG TABLET GT SCH ×2 (09:33→22:26)
[2017-10-24] MEDS: ASCORBIC ACID 500 MG TABLET GT SCH (09:34)
[2017-10-24] MEDS: FERROUS SULFATE 300 MG/5 ML UDC GT SCH (09:34)
[2017-10-24] MEDS: VANCOMYCIN HCL 1,000 MG in D5W 250 ML IV SCH (09:35)
[2017-10-24 12:51] VITALS: BP_SYST 142
[2017-10-24 13:16] VITALS: BP_SYST 142
[2017-10-24 16:42] VITALS: BP_SYST 138
[2017-10-24 20:00] VITALS: BP_SYST 134
[2017-10-24] MEDS: DONEPEZIL HCL 5 MG TABLET (ARICEPT) GT SCH (22:26)
[2017-10-25 01:22] VITALS: BP_SYST 124
[2017-10-25] MEDS: LEVOTHYROXINE SODIUM 0.088 MG TABLET GT SCH (06:13)
[2017-10-25 07:18] LABS: BASOPHILS % (AUTO) 0.6 % (0.0-2.0); EOSINOPHILS # (AUTO) 0.3 K/uL (0.0-0.4); EOSINOPHILS % (AUTO) 4.7 % (0.0-4.0); HEMATOCRIT 36.4 % (36-48); HEMOGLOBIN 12.4 g/dL (12.0-16.0); LYMPHOCYTES # (AUTO) 1.2 K/uL (1.0-5.5); LYMPHOCYTES % (AUTO) 16.9 % (20.5-51.5); MEAN CORPUSCULAR HEMOGLOBIN 34 pg (27-31); MEAN CORPUSCULAR HGB CONC 34 % (32-36); MEAN CORPUSCULAR VOLUME 100 fL (79.0-98.0); MONOCYTES # (AUTO) 0.6 K/uL (0.0-1.0); NEUTROPHILS # (AUTO) 4.9 K/uL (1.8-7.7); NEUTROPHILS % (AUTO) 68.8 % (40.0-70.0); PLATELET COUNT (AUTO) 140 K/uL (130-430); RED BLOOD CELL COUNT(AUTO) 3.64 MIL/uL (4.2-6.2); RED CELL DISTRIBUTION WIDTH 14.1 % (9.0-15.0)
[2017-10-25 07:41] LABS: ANION GAP 6 (5-15); CALCIUM 8.8 mg/dL (8.4-11.0); CHLORIDE 108 mmol/L (98-107); CREATININE 0.89 mg/dL (0.55-1.30); GLUCOSE 140 mg/dL (70-99); POTASSIUM 4.2 mmol/L (3.5-5.1); SODIUM SERUM 143 mmol/L (136-145); UREA NITROGEN, BLOOD 25 mg/dL (8-21)
[2017-10-25] MEDS: D5NS 1,000 ML IV SCH ×2 (07:45→12:13)
[2017-10-25 08:00] VITALS: BP_SYST 139
[2017-10-25] MEDS: FERROUS SULFATE 300 MG/5 ML UDC GT SCH (08:46)
[2017-10-25] MEDS: PANTOPRAZOLE SODIUM 40 MG/VIAL (PROTONIX) IVP SCH (08:47)
[2017-10-25] MEDS: MEMANTINE HCL 5 MG TABLET GT SCH (08:47)
[2017-10-25] MEDS: ASCORBIC ACID 500 MG TABLET GT SCH (08:47)
[2017-10-25] MEDS: ATENOLOL 50 MG TABLET (TENORMIN) GT SCH (08:47)
[2017-10-25 11:32] VITALS: BP_SYST 141
[2017-10-25 15:34] VITALS: BP_SYST 127
[2017-10-25 17:32] VITALS: BP_SYST 138
== END 2017-10-25 20:32 | DRG 378 ==
LOC: SED 17:49 → SMU 21:38
PROVIDERS: ADMIT Internal Medicine Hospice and Palliative Medicine; ATTEND Internal Medicine Hospice and Palliative Medicine
PROC: 0DB68ZX Excision of Stomach, Via Natural or Artificial Opening Endoscopic, Diagnostic (ICD-10-PCS; 2017-10-20)
PROC: 0DB98ZX Excision of Duodenum, Via Natural or Artificial Opening Endoscopic, Diagnostic (ICD-10-PCS; principal; 2017-10-20 08:00)
DX: K25.4 Chronic or unspecified gastric ulcer with hemorrhage (principal); E44.0 Moderate protein-calorie malnutrition; I48.91 Unspecified atrial fibrillation; Z93.1 Gastrostomy status; G30.9 Alzheimer's disease, unspecified; I10 Essential (primary) hypertension; K21.9 Gastro-esophageal reflux disease without esophagitis; F02.80 Dementia in other diseases classified elsewhere, unspecified severity, without behavioral disturbance, psychotic disturbance, mood disturbance, and anxiety; D62 Acute posthemorrhagic anemia; K29.71 Gastritis, unspecified, with bleeding; K31.7 Polyp of stomach and duodenum; K44.9 Diaphragmatic hernia without obstruction or gangrene; Z86.73 Personal history of transient ischemic attack (TIA), and cerebral infarction without residual deficits; Z74.01 Bed confinement status; Z79.01 Long term (current) use of anticoagulants; Z91.040 Latex allergy status; Z88.0 Allergy status to penicillin; Z68.24 Body mass index [BMI] 24.0-24.9, adult; Z79.899 Other long term (current) drug therapy
CPT/HCPCS: 36415; 43239; 71010; 80048; 80053; 80202-TC; 83605; 83735-TC; 85018-TC; 85025; 85610-TC; 85730-TC; 86886; 86900; 86901; 87040-TC; 87081; 87186-TC; 88305; 88312; 88313; 92610-GN; 99285; C9113; J2175; J2250; J3370; J7042; J7050; J7060

== ENCOUNTER 2018-08-29 16:18 | Inpatient (IN) | payer MEDICARE ==
[~2018-08-29] VITALS: Ht 157.5 cm; Wt 60.3 kg
[~2018-08-29 16:18] MED LIST changes: -ALBU2.5V7 INH; -AMIN30LI2 GT; -APIX5TAB GT; -COLL90OI2 TP; +MOM GT; -OMEP20CA10 GT; -ZIN220 GT
[2018-08-29 16:28] VITALS: BP_SYST 140
[2018-08-29] MEDS ORDERED: NS 500 ML IV ONE (16:45)
[2018-08-29] MEDS ORDERED: NACL 0.9% 1,000 ML IV ONE (16:45)
[2018-08-29 17:12] LABS: HEMATOCRIT 47.4 % (36-48); HEMOGLOBIN 15.8 g/dL (12.0-16.0); MEAN CORPUSCULAR HEMOGLOBIN 34 pg (27-31); MEAN CORPUSCULAR HGB CONC 33 % (32-36); MEAN CORPUSCULAR VOLUME 102 fL (79.0-98.0); PLATELET COUNT (AUTO) 228 K/uL (130-430); RED BLOOD CELL COUNT(AUTO) 4.68 MIL/uL (4.2-6.2); RED CELL DISTRIBUTION WIDTH 13.6 % (9.0-15.0); WHITE BLOOD COUNT (AUTO) 10.2 K/uL (4.8-10.8)
[2018-08-29 17:20] LABS: ANION GAP 6 (5-15); CALCIUM 9.1 mg/dL (8.4-11.0); CHLORIDE 105 mmol/L (98-107); CREATININE 0.84 mg/dL (0.55-1.30); GLUCOSE 93 mg/dL (70-99); POTASSIUM 4.3 mmol/L (3.5-5.1); SODIUM SERUM 137 mmol/L (136-145); UREA NITROGEN, BLOOD 32 mg/dL (8-21)
[2018-08-29 17:25] LABS: ALANINE AMINOTRANSFERASE 21 U/L (12-78); ALBUMIN 3.1 g/dL (3.4-4.8); ASPARTATE AMINOTRANSFERASE 18 U/L (10-37); TOTAL BILIRUBIN 0.4 mg/dL (0.0-1.0)
[2018-08-29 17:28] LABS: ATYPICAL LYMPHOCYTES % 0 % (0-0); BAND % (MANUAL) 3 % (0-6); BASOPHILS % (MANUAL) 0 % (0-2); EOSINOPHILS % (MANUAL) 3 % (0-7); LYMPHOCYTES % (MANUAL) 19 % (20-46); MONOCYTES % (MANUAL) 4 % (0-11)
[2018-08-29] MEDS: NACL 0.9% 1,000 ML IV SCH ×2 (19:01→19:03)
[2018-08-29 19:15] VITALS: BP_SYST 158
[2018-08-29] MEDS ORDERED: ACETAMINOPHEN 325 MG TABLET GT PRN (19:30)
[2018-08-29] MEDS ORDERED: MILK OF MAGNESIA 30 ML UDC GT SCH (19:30)
[2018-08-29 23:26] VITALS: BP_SYST 165
[2018-08-29] MEDS: DONEPEZIL HCL 5 MG TABLET (ARICEPT) GT SCH (23:38)
[2018-08-29] MEDS: MEMANTINE HCL 5 MG TABLET GT SCH (23:39)
[2018-08-30 01:31] LABS: HEMOGLOBIN 15.4 g/dL (12.0-16.0)
[2018-08-30 08:20] VITALS: BP_SYST 130; BP_SYST 174
[2018-08-30 08:38] LABS: HEMATOCRIT 45.4 % (36-48); HEMOGLOBIN 14.7 g/dL (12.0-16.0)
[2018-08-30] MEDS ORDERED: LEVOTHYROXINE SODIUM 0.088 MG TABLET GT SCH (09:00)
[2018-08-30] MEDS ORDERED: FERROUS SULFATE 300 MG/5 ML UDC GT SCH ×2 (09:00)
[2018-08-30] MEDS: MEMANTINE HCL 5 MG TABLET GT SCH ×2 (09:54→21:15)
[2018-08-30] MEDS: ATENOLOL 50 MG TABLET (TENORMIN) GT SCH (09:55)
[2018-08-30] MEDS: ASCORBIC ACID 500 MG TABLET GT SCH (09:55)
[2018-08-30 12:00] VITALS: BP_SYST 146
[2018-08-30] MEDS ORDERED: MAGNESIUM CITRATE 300 ML ORAL SOLUTION GT ONE (12:00)
[2018-08-30 12:10] VITALS: BP_SYST 146
[2018-08-30] MEDS: NACL 0.9% 1,000 ML IV SCH (15:41)
[2018-08-30 16:00] VITALS: BP_SYST 132
[2018-08-30 17:27] LABS: HEMATOCRIT 44.1 % (36-48); HEMOGLOBIN 14.3 g/dL (12.0-16.0)
[2018-08-30] MEDS: GOLYTELY / COLYTE SOLUTION 4 LITERS PO ONE ×2 (18:10→18:47)
[2018-08-30 20:05] VITALS: BP_SYST 152
[2018-08-30] MEDS: DONEPEZIL HCL 5 MG TABLET (ARICEPT) GT SCH (21:15)
[2018-08-31 00:35] VITALS: BP_SYST 138
[2018-08-31] MEDS: NACL 0.9% 1,000 ML IV SCH ×2 (02:12→11:17)
[2018-08-31 06:55] LABS: ANION GAP 7 (5-15); CALCIUM 8.2 mg/dL (8.4-11.0); CHLORIDE 113 mmol/L (98-107); CREATININE 0.85 mg/dL (0.55-1.30); GLUCOSE 130 mg/dL (70-99); POTASSIUM 4.1 mmol/L (3.5-5.1); SODIUM SERUM 145 mmol/L (136-145); UREA NITROGEN, BLOOD 34 mg/dL (8-21)
[2018-08-31 06:58] LABS: BASOPHILS % (AUTO) 0.4 % (0.0-2.0); EOSINOPHILS # (AUTO) 0.3 K/uL (0.0-0.4); EOSINOPHILS % (AUTO) 3.9 % (0.0-4.0); HEMATOCRIT 41.7 % (36-48); HEMOGLOBIN 13.6 g/dL (12.0-16.0); LYMPHOCYTES # (AUTO) 1.2 K/uL (1.0-5.5); LYMPHOCYTES % (AUTO) 17.8 % (20.5-51.5); MEAN CORPUSCULAR HEMOGLOBIN 33 pg (27-31); MEAN CORPUSCULAR HGB CONC 33 % (32-36); MEAN CORPUSCULAR VOLUME 102 fL (79.0-98.0); MONOCYTES # (AUTO) 0.6 K/uL (0.0-1.0); NEUTROPHILS # (AUTO) 4.5 K/uL (1.8-7.7); NEUTROPHILS % (AUTO) 68.9 % (40.0-70.0); PLATELET COUNT (AUTO) 214 K/uL (130-430); RED BLOOD CELL COUNT(AUTO) 4.11 MIL/uL (4.2-6.2); RED CELL DISTRIBUTION WIDTH 13.9 % (9.0-15.0); WHITE BLOOD COUNT (AUTO) 6.6 K/uL (4.8-10.8)
[2018-08-31] MEDS ORDERED: LEVOTHYROXINE SODIUM 0.088 MG TABLET GT SCH (07:00)
[2018-08-31 08:06] VITALS: BP_SYST 127
[2018-08-31] MEDS: ASCORBIC ACID 500 MG TABLET GT SCH (09:30)
[2018-08-31] MEDS: ATENOLOL 50 MG TABLET (TENORMIN) GT SCH (09:31)
[2018-08-31] MEDS: MEMANTINE HCL 5 MG TABLET GT SCH (09:31)
[2018-08-31 12:36] VITALS: BP_SYST 132
[2018-08-31 14:38] VITALS: BP_SYST 132
== END 2018-08-31 16:04 | DRG 872 ==
LOC: SED 16:18 → SMU 17:59
PROVIDERS: ADMIT Internal Medicine Hospice and Palliative Medicine; ATTEND Internal Medicine Hospice and Palliative Medicine
DX: A41.9 Sepsis, unspecified organism (principal); K92.2 Gastrointestinal hemorrhage, unspecified; K62.6 Ulcer of anus and rectum; K64.9 Unspecified hemorrhoids; K52.9 Noninfective gastroenteritis and colitis, unspecified; I10 Essential (primary) hypertension; E03.9 Hypothyroidism, unspecified; F03.90 Unspecified dementia, unspecified severity, without behavioral disturbance, psychotic disturbance, mood disturbance, and anxiety; K21.9 Gastro-esophageal reflux disease without esophagitis; R13.10 Dysphagia, unspecified; Z86.73 Personal history of transient ischemic attack (TIA), and cerebral infarction without residual deficits; Z87.11 Personal history of peptic ulcer disease; Z93.1 Gastrostomy status; Z88.0 Allergy status to penicillin; Z91.040 Latex allergy status; Z79.899 Other long term (current) drug therapy
CPT/HCPCS: 36415; 71045; 80048; 80053; 83605; 84484; 85007; 85018-TC; 85025; 85027; 85610-TC; 85730-TC; 87040-TC; 87081; 93005; 99285; J7030

== ENCOUNTER 2018-09-17 09:12 | Inpatient (IN) | payer MEDICARE ==
[~2018-09-17] VITALS: Ht 167.6 cm; Wt 59.0 kg
[2018-09-17 09:21] VITALS: BP_SYST 110
--- NOTE | 2018-09-17 09:21 | NUR ---
Placed in room 2. Placed on conveyor monitor, blood pressure machine and pulse oximeter. To gown for exam. Side rails up. Report given to Merlin THRASHER.
--- NOTE | 2018-09-17 09:25 | NUR ---
Pt presents to ER from [facility] as staff report pt has ALOC and had low o2 sat. Per report from paramedics, staff from [facility] state that pt is normally able to communicate verbally but today pt was found unresponsive; also pt is normally contracted. Pt on 2L nasal canula upon arrival, crackles heard and rhonchi auscultated in lung fermin. Pt sleeping, unresponsive to verbal commands, vital signs stable at this time.
--- NOTE | 2018-09-17 09:25 | NUR ---
Note eliceoone in EDM - 09/17/18 at 1205 by [email or web address] Pt presents to ER from [facility] as staff report pt has ALOC and had low o2 sat. Per report from paramedics, staff from [facility] state that pt is normally non-verbal but able to respond to verbal commands, and pt is normally contracted. Pt on 2L nasal canula upon arrival, crackles heard and rhonchi auscultated in lung fermin. Pt sleeping, unresponsive to verbal commands, vital signs stable at this time.
--- NOTE | 2018-09-17 09:30 | NUR ---
# 24 gauge angiocath placed to RAC. Use of asceptic technique. Opsite placed over site. Blood return noted. Flushed with 10 cc of normal saline. No evidence of infiltration noted. Patient tolerated well.
--- NOTE | 2018-09-17 09:36 | NUR ---
Laboratory at bedside.
[2018-09-17 09:55] LABS: HEMATOCRIT 34.2 % (36-48); HEMOGLOBIN 11.8 g/dL (12.0-16.0); MEAN CORPUSCULAR HEMOGLOBIN 34 pg (27-31); MEAN CORPUSCULAR HGB CONC 35 % (32-36); MEAN CORPUSCULAR VOLUME 98 fL (79.0-98.0); PLATELET COUNT (AUTO) 573 K/uL (130-430)
--- NOTE | 2018-09-17 10:00 | NUR ---
Patient transported to radiology via gurney, accompanied by rad staff.
[2018-09-17 10:08] LABS: WHITE BLOOD COUNT (AUTO) 50.5 K/uL (4.8-10.8)
[2018-09-17 10:13] LABS: INR 1.1 (0.8-1.2); PROTHROMBIN TIME 10.8 SECS (9.5-12.5)
[2018-09-17] MEDS ORDERED: NACL 0.9% 1,000 ML IV ONE (10:15)
[2018-09-17] MEDS ORDERED: LEVOFLOXACIN 500 MG/D5W 100 ML IV ONE ×2 (10:15→15:00)
[2018-09-17] MEDS ORDERED: NS 1000 ML IV.SOLN IV ONE (10:15)
--- NOTE | 2018-09-17 10:15 | NUR ---
Returned from radiology, back to [facility].
[2018-09-17 10:19] LABS: ALANINE AMINOTRANSFERASE 49 U/L (12-78); ALBUMIN 1.5 g/dL (3.4-4.8); ANION GAP 22 (5-15); ASPARTATE AMINOTRANSFERASE 38 U/L (10-37); CALCIUM 8.4 mg/dL (8.4-11.0); CREATININE 4.41 mg/dL (0.55-1.30); LIPASE 318 U/L (73-393); TOTAL BILIRUBIN 0.4 mg/dL (0.0-1.0)
[2018-09-17 10:24] LABS: SODIUM SERUM 111 mmol/L (136-145)
[2018-09-17 10:25] LABS: POTASSIUM 6.5 mmol/L (3.5-5.1)
[2018-09-17 10:26] LABS: BAND % (MANUAL) 9 % (0-6); BASOPHILS % (MANUAL) 0 % (0-2); CHLORIDE 78 mmol/L (98-107); EOSINOPHILS % (MANUAL) 0 % (0-7); GLUCOSE 447 mg/dL (70-99); LYMPHOCYTES % (MANUAL) 1 % (20-46); MONOCYTES % (MANUAL) 3 % (0-11)
[2018-09-17 10:27] LABS: UREA NITROGEN, BLOOD 194 mg/dL (8-21)
[2018-09-17 10:28] LABS: ALCOHOL, BLOOD < 3 mg/dL (<10)
[2018-09-17] MEDS ORDERED: INSULIN REGULAR, HUMAN 10 UNITS/0.1 ML INJ IVP ONE (10:45)
--- NOTE | 2018-09-17 11:04 | NUR ---
Patient transported to radiology via gurney, accompanied by rad staff.
--- NOTE | 2018-09-17 11:11 | NUR ---
Medication reconciliation completed with information provided by [facility] staff. Any prior medication reconciliation on file was reviewed and corrected.
--- NOTE | 2018-09-17 11:20 | NUR ---
Returned from radiology, back to [facility].
--- NOTE | 2018-09-17 11:35 | NUR ---
Dr. Benny case awaiting CT abdomen results before transferring pt to floor. Pt in stable condition at this time. Will continue to monitor.
--- NOTE | 2018-09-17 12:16 | NUR ---
Spoke with Dr. Zapata for re-verification of medication orders as he ordered total of 3L normal saline. However, pt's crackles / rhonchi increased significantly and Dr. Zapata has ordered to disregard the other 2L of normal saline. Pt breathing 98% on 2L nasal canula.
--- NOTE | 2018-09-17 12:22 | NUR ---
Dr. Boone at bedside.
[2018-09-17 12:27] VITALS: BP_SYST 135
--- NOTE | 2018-09-17 12:27 | NUR ---
ADMISSION NOTE Received patient from ER via [facility]le[facility], received report from Merlin THRASHER. Patient admitted with diagnosis of altered level of consciousness. Patient unable to walk. Patient attached to O2 2lpm via NC. Family at bedside.
[2018-09-17] MEDS ORDERED: ALBUTEROL SULFATE 0.083% 2.5 MG/3 ML VIAL.NEB INH PRN (12:30)
[2018-09-17] MEDS ORDERED: DEXTROSE 50% JECT 50 ML DISP.SYRIN IVP PRN (12:30)
[2018-09-17] MEDS ORDERED: D5NS 1,000 ML IV SCH (12:30)
[2018-09-17] MEDS ORDERED: IPRATROPIUM BROM 0.5 MG/2.5 ML VIAL.NEB (ATROVENT) INH PRN (12:30)
[2018-09-17] MEDS ORDERED: INSULIN REGULAR, HUMAN 100 UNITS/ML, 10 ML VIAL (novoLIN R) SUBCUT PRN (12:30)
--- NOTE | 2018-09-17 12:30 | NUR ---
Patient will be admitted to care of Dr. Boone. Admitted to tele unit. Will go to room 134a. Belongings list completed. Summary report printed. Report will be given at bedside. Transfer to tele. IV present no sign or symptom of infiltration.
[2018-09-17] MEDS ORDERED: SODIUM POLYSTYRENE SULFONATE 15 GM/60 ML UDBTL RC ONE (13:30)
--- NOTE | 2018-09-17 13:31 | NUR ---
NEPHRO CONSULT: DR. Elder is informed in person regarding consult.
--- NOTE | 2018-09-17 13:35 | NUR ---
MD VISIT Dr. Elder at bedside with orders to hold Kayexelate until repeat STAT Chem labs are completed.
[2018-09-17 14:27] LABS: ANION GAP 20 (5-15); CALCIUM 7.3 mg/dL (8.4-11.0); CHLORIDE 86 mmol/L (98-107); CREATININE 4.47 mg/dL (0.55-1.30); GLUCOSE 397 mg/dL (70-99)
[2018-09-17] MEDS ORDERED: SODIUM POLYSTYRENE SULFONATE 15 GM/60 ML UDBTL GT ONE (14:30)
[2018-09-17] MEDS: NACL 0.9% 1,000 ML IV SCH (14:32)
[2018-09-17] MEDS: SODIUM BICARBONATE 8.4% JECT 50 MEQ/50 ML SYRINGE IVP SCH ×4 (14:43→18:00)
[2018-09-17 14:48] LABS: SODIUM SERUM 113 mmol/L (136-145)
[2018-09-17 14:49] LABS: POTASSIUM 6.8 mmol/L (3.5-5.1)
--- NOTE | 2018-09-17 15:10 | NUR ---
CONSULTATION PAGED/CALLED Reason for Consultation: ABDOMINAL PAIN Person Who was Notified: SPOKE WITH DUYEN FROM [facility] Consulting Physician: Predictive Maintenance Technician Specialty: SURGEON Ordering Physician:
--- NOTE | 2018-09-17 15:14 | NUR ---
Meds: Kayexalate 60 gm and sodium bicarb 50 MeQ given as ordered, family were at bedside, medication actions and side effects were discussed with family.
--- NOTE | 2018-09-17 15:16 | NUR ---
Surgery Consult: Spoke with Dr. Mixon regarding consult, will see patient .
[2018-09-17] MEDS: ALBUTEROL SULFATE 0.083% 2.5 MG/3 ML VIAL.NEB INH SCH ×3 (15:24→23:00)
--- NOTE | 2018-09-17 15:24 | NUR ---
RT NOTES Sterile NTS was done w/ family's consent. Sxn large amount of dark/ foul smelling secretion, RN at bedside, asked to stop NTS, possible stomach content & pt. vomitted a little. Placed pt back on 2L O2. Addendum: 09/17/18 at 1735 by Sera Rios RT Amended: Links added.
[2018-09-17] MEDS: IPRATROPIUM BROM 0.5 MG/2.5 ML VIAL.NEB (ATROVENT) INH SCH ×3 (15:25→23:00)
--- NOTE | 2018-09-17 16:15 | NUR ---
MARCO SCALE EVALUATION: Late note for 09/17/18 at 1615 secondary to patient care. Patient evaluated for a low Marco score of 10. Patient was awake, oriented x1, received in a [place] bed with an Isoflex FELISA mattress. Patient is unable to turn in bed independently. Skin is intact. Recommend reposition patient side to side only every 2 hours with pillow support and off-load pressure areas with pillows for pressure re-distribution. Elevate, offload and float bilateral heels with one pillow lengthwise under each extremity at all times. Use moisture barrier cream on buttocks and other moisture susceptible areas QID and as needed for soiling. Perform skin care and monitor skin integrity Q shift. Initiate low air-loss therapy. Skin assessment: 1. Right neck, lateral aspect: Area of erythema from intertrigo (patient has right neck flexion contracture), present on admission. Recommend: Cleanse involved area with mild soap and water. Pat dry. Apply moisture barrier cream to involved area. Place inter-dry AG cloth in between neck area. Perform site care daily, and as needed for dressing soiling. Place intra-dry AG cloth every 5 days, and as needed for soiling. 2. 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 Recommend: End involved areas with mild soap and water. Apply moisture barrier cream to involved areas. Perform site care qid, and as needed for soiling. 3. Bilateral heels: Blanchable erythema with purple discoloration, present on admission. Recommend: Elevate, offload and float bilateral heels with one pillow lengthwise under each extremity at all times.
--- NOTE | 2018-09-17 16:29 | NUR ---
IV RE-INSERTION: Restarted a 22G on left neck vein. Successful after 1 attempts with good backflow of blood, flushes well. Will observe for any signs of infiltration.
[2018-09-17 16:37] VITALS: BP_SYST 155
--- NOTE | 2018-09-17 16:49 | NUR ---
Patient status update: Updated Dr. Elder on most recent chemistry lab results and patient's condition. Spoke with patient's son Valentin on the phone regarding Hospice. Valentin wants to wait for eldest daughter Shayla who is a nurse and they will talk to Dr. Elder when she is here.
--- NOTE | 2018-09-17 17:15 | NUR ---
DNR STATUS: Patient's family spoke with Dr. Elder and decided for a DNR status. Telephone order received.
--- NOTE | 2018-09-17 17:30 | NUR ---
CALLED DR. SHOEMAKER Regarding family request for pain medications for comfort measures. Morphine 2mg IVP Q6P ordered.
[2018-09-17] MEDS ORDERED: MORPHINE 2 MG/ML INJ. SYRINGE ONE (18:09)
--- NOTE | 2018-09-17 18:12 | NUR ---
ACCUCHECK REFUSED Family refused accucheck and incontinence care.
--- NOTE | 2018-09-17 18:30 | NUR ---
REFUSED MED Family refused sodium bicarbonate.
--- NOTE | 2018-09-17 18:32 | NUR ---
CLOSING NOTES Patient laying in bed resting, nonverbal, doesn't follow commands. Family at bedside. Morphine 2mg IVP given for comfort measures. SOB noted on exertion. IV sites intact, patent, dressings are dry. Incontinence care refused. Bed in lowest position, call light within reach. Will endorse to oncoming RN. Addendum: 09/17/18 at 1845 by Shonda Emanuel RN CLOSING NOTES Heels offloaded on pillows.
--- NOTE | 2018-09-17 19:40 | NUR ---
OPENING NOTE Received patient awake, AOx1. She was calm,non-combative, followed voices, though not commands. VSS and NS fluid infusing as ordered via patent IV to RAC. Patient had a bowel movement, she was cleaned and repositioned for comfort. Air mattress is on. Bed Alarm was set to lowest position and locked, bed alarm on, and call light w/in reach. Updated board and spoke with family, at bedside. The grand daughter asked for Ativan and asked about hospice care and I will page Dr. Elder for orders.
--- NOTE | 2018-09-17 19:47 | NUR ---
PAGED FOR DR. SHOEMAKER ( DR. ALVARES DISABILITY RATER FOR DR. SHOEMAKER) CALLED REGARDDING PATIENT [facility] FOR ORDERS. I SPOKE WITH ARIC
[2018-09-17 20:00] VITALS: BP_SYST 90
--- NOTE | 2018-09-17 20:20 | NUR ---
SPOKE TO MD Craven w/ Dr. Elder regarding medication orders for anxiety. The grand daughter inquired/requested if the patient had medication for agitation and also asked if there was a hospice discharge plan and I forward the concerns to Dr. Elder. Dr. Elder, ordered Ativan 1mg Q4P inj, and a hospice evaluation, with the hospice doctor to be determined by Dr. Boone.
--- NOTE | 2018-09-17 21:13 | NUR ---
CONSULT REASON FOR CONSULT: ABDOMINAL PAIN DOCTOR SAW THE PATIENT IN PERSON. CONSULTING PHYSICIAN: DR. INFANTE HYPERCIL CORE TRANSFORMER ASSEMBLER PHONE NUMBER: [phone] PHYSICIAN ORDERING: DR. STEELE
[2018-09-17] MEDS: LORazepam 2 MG/ML VIAL IVP PRN (21:16)
--- NOTE | 2018-09-17 22:30 | NUR ---
ROUNDS Patient is resting, w/eyes open. V/S BP 98/41, HR 61, Resp 22 labored, SPO2 96% on 2L NC. Family is not present at the moment of rounds. Will monitor. Safety measures in place and call light w/in reach.
[2018-09-17 23:00] VITALS: BP_SYST 98
--- NOTE | 2018-09-18 00:30 | NUR ---
ROUNDS Patient resting, with eyes open. V/S are BP 104/52, HR 67, Resp 22 labored, SpO2 97% on 2L NC. IVF fluids were replaced with new bag and accucheck was done, with a resulting level of 392. Insulin was not administered. Safety measures remain in place and call light w/in reach. Will monitor.
[2018-09-18] MEDS: NACL 0.9% 1,000 ML IV SCH (00:34)
[2018-09-18 01:08] VITALS: BP_SYST 94
--- NOTE | 2018-09-18 02:39 | NUR ---
ROUNDS Patient resting, quietly and calm, w/ eyes closed. She opens her eyes periodically, no sign of distress noted. V/S B/P 111/72, HR 75, resp 24, SpO2 98% on 2L NC. Safety measures in place and call light w/in reach. Will monitor.
[2018-09-18] MEDS: ALBUTEROL SULFATE 0.083% 2.5 MG/3 ML VIAL.NEB INH SCH ×3 (03:00→11:00)
[2018-09-18] MEDS: IPRATROPIUM BROM 0.5 MG/2.5 ML VIAL.NEB (ATROVENT) INH SCH ×3 (03:00→11:00)
--- NOTE | 2018-09-18 03:04 | NUR ---
PAGEJuan Ramon PARR WHO IS MECHANICAL MAINTENANCE SUPERVISOR FOR DR. SHOEMAKER REGARDING PATIENT HONEY ARZOLA ROOM 134 A CRITICAL LABS
--- NOTE | 2018-09-18 03:17 | NUR ---
Spoke to Reported critical blood culture result to Dr. Elder, no new orders were provided, patient is presently on Levoquin antibiotic.
[2018-09-18] MEDS: MORPHINE 2 MG/ML INJ. SYRINGE IVP PRN ×2 (06:16→12:17)
--- NOTE | 2018-09-18 06:30 | NUR ---
RT NOTES NTS yielded large amount of appears to be very dark stomack contents. NOC shift RN witnessed. 2nd RT at bedside assisting Addendum: 09/18/18 at 0819 by Sera Rios RT Amended: Links added.
--- NOTE | 2018-09-18 06:57 | NUR ---
CLOSING NOTE Patient awake, eyes open. She was cleaned/changed and provided with new linen. 2mg of Morphine were administered as ordered. Accucheck was 336 and no insulin was administered. She had audible congestion, oral suction was done, it did not clear congestion and RT was called. Deep suction was performed and coffee grounds colored fluid was suction. Safety measures in place and call light in place. Will endorse to oncoming nurse.
[2018-09-18 07:34] VITALS: BP_SYST 147
[2018-09-18 07:36] LABS: ALANINE AMINOTRANSFERASE 64 U/L (12-78); ALBUMIN 1.3 g/dL (3.4-4.8); ANION GAP 25 (5-15); ASPARTATE AMINOTRANSFERASE 46 U/L (10-37); CALCIUM 7.5 mg/dL (8.4-11.0); CHLORIDE 89 mmol/L (98-107); CREATININE 3.98 mg/dL (0.55-1.30); GLUCOSE 385 mg/dL (70-99); POTASSIUM 5.3 mmol/L (3.5-5.1); SODIUM SERUM 124 mmol/L (136-145); TOTAL BILIRUBIN 0.4 mg/dL (0.0-1.0)
--- NOTE | 2018-09-18 07:36 | NUR ---
AM NOTES Patient awake laying in bed resting. Eyes Addendum: 09/18/18 at 0745 by Shonda Emanuel RN AM NOTES ADDITION Eyes are closed, doesnt respond to name. Patient is tachypneic, wheezing heard in bilateral lobes with RR of 44. IV sites patent, intact, dressings are dry. Bed in lowest position call light within reach. Will cont. to monitor.
[2018-09-18 07:37] LABS: BASOPHILS # (AUTO) 0.2 K/uL (0.0-0.2); BASOPHILS % (AUTO) 0.5 % (0.0-2.0); HEMATOCRIT 29.4 % (36-48); LYMPHOCYTES # (AUTO) 0.2 K/uL (1.0-5.5); LYMPHOCYTES % (AUTO) 0.5 % (20.5-51.5); MEAN CORPUSCULAR HEMOGLOBIN 33 pg (27-31); MEAN CORPUSCULAR HGB CONC 34 % (32-36); MEAN CORPUSCULAR VOLUME 98 fL (79.0-98.0); MONOCYTES % (AUTO) 0.1 % (1.7-9.3); NEUTROPHILS # (AUTO) 30.1 K/uL (1.8-7.7); PLATELET COUNT (AUTO) 404 K/uL (130-430); RED BLOOD CELL COUNT(AUTO) 3.01 MIL/uL (4.2-6.2); RED CELL DISTRIBUTION WIDTH 13.7 % (9.0-15.0)
--- NOTE | 2018-09-18 07:40 | NUR ---
CRITICAL LAB VALUES Spoke to Oneyda from lab regarding critical labs. BUN 221, CREATININE 3.98, NA 124, K 5.3, CHLORIDE 89, CO2 10, GLUCOSE 385.
[2018-09-18 07:44] LABS: UREA NITROGEN, BLOOD 221 mg/dL (8-21)
[2018-09-18 08:00] LABS: WHITE BLOOD COUNT (AUTO) 30.5 K/uL (4.8-10.8)
[2018-09-18] MEDS: LORazepam 2 MG/ML VIAL IVP PRN ×2 (08:05→11:08)
[2018-09-18] MEDS ORDERED: LEVOFLOXACIN 500 MG/D5W 100 ML IV SCH (09:00)
[2018-09-18] MEDS ORDERED: LEVOTHYROXINE SODIUM 0.088 MG TABLET GT SCH (09:00)
--- NOTE | 2018-09-18 09:00 | NUR ---
SPOKE WITH DR. GIORGIO STEELE aware of cmp abnormal values, including WBC of 30.5. No new orders received.
--- NOTE | 2018-09-18 09:40 | NUR ---
RT NOTES Found pt. on 100% NRM, saturation 84-86%. RN at bedside confirms pt's code status.
[2018-09-18 10:15] VITALS: BP_SYST 98
--- NOTE | 2018-09-18 10:32 | NUR ---
Social Service Note: BRUSH HOLDER INSPECTOR met with pt's granddaughter, Shayla and family at bedside. BRUSH HOLDER INSPECTOR spoke with pt's family about the order for hospice care. Pt's family would like comfort measures to be provided at the hospital; pt's family is anticipating pt passing today. BRUSH HOLDER INSPECTOR provided emotional support. BRUSH HOLDER INSPECTOR alerted pt's family that BRUSH HOLDER INSPECTOR would remain available for support. BRUSH HOLDER INSPECTOR will follow up with pt's family regarding hospice care should pt's vitals remain stable. Addendum: 09/18/18 at 1058 by Vikki Bourne LCSW BRUSH HOLDER INSPECTOR met with pt's family again at bedside; pt's family is asking that if pt holds on today could hospice be set up at home. BRUSH HOLDER INSPECTOR provided pt's family with brochures for: [facility], and [facility]. BRUSH HOLDER INSPECTOR will follow up with pt's family later today to see if they are ready to meet with a hospice agency.
--- NOTE | 2018-09-18 10:50 | NUR ---
Nutrition Update Marco Scale 10 noted. Pt admitted for altered mental status. Diet: N/A BMI: 21 kg/m2 RD to follow per nutrition care standards.
[2018-09-18 11:01] VITALS: BP_SYST 78
[2018-09-18 11:05] LABS: NEUTROPHILS % (AUTO) 98.9 % (40.0-70.0)
--- NOTE | 2018-09-18 11:10 | NUR ---
MD VISIT Dr. Elder at bedside speaking with family. Dr. Boone aware of patients deteriorating condition.
[2018-09-18 12:00] VITALS: BP_SYST 52
--- NOTE | 2018-09-18 12:25 | NUR ---
ROUNDS Patient laying in bed, asleep. Family at bedside. Morphine 2mg IVP given for comfort measures. Bed in lowest position, call light within reach. RR 30, breaths are shallow. O2 sat 91% on 15lpm via non breather mask.
--- NOTE | 2018-09-18 13:56 | NUR ---
Pronouncement of : Asystole on the monitor, no palpable pulse, no spontaneous breathing, pupils are dilated, no bp, skin color is pale. Pronounced by Shireen Yi RN and Taylor Aguilera RN.
--- NOTE | 2018-09-18 14:09 | NUR ---
Social Service Note: TECHNICAL APPLICATIONS SCIENTIST met with pt's family at bedside; emotional support provided. TECHNICAL APPLICATIONS SCIENTIST spoke with granddaughter about mortuary arrangements. Pt's granddaughter states that all arrangements are set up through [place]. TECHNICAL APPLICATIONS SCIENTIST updated pt's nurse. TECHNICAL APPLICATIONS SCIENTIST will remain available for support and will follow up as needed.
[2018-09-18 16:11] LABS: UREA NITROGEN, BLOOD 197 mg/dL (8-21)
--- NOTE | 2018-09-18 17:30 | NUR ---
BODY hold: transferred body to body hold.
--- NOTE | 2018-09-18 17:45 | NUR ---
Mortuary shelter supervisor: Called [facility], spoke with Grace, pickler helper time will be at [phone].
[2018-09-19] MEDS ORDERED: LEVOFLOXACIN 250 MG/D5W 50 ML IV SCH (09:00)
== END 2018-09-18 13:56 | disposition expired | DRG 871 ==
LOC: SED 09:12 → STU 11:04
PROVIDERS: ADMIT Internal Medicine Hospice and Palliative Medicine; ATTEND Internal Medicine Hospice and Palliative Medicine
DX: A41.9 Sepsis, unspecified organism (principal); G92 Toxic encephalopathy; J18.1 Lobar pneumonia, unspecified organism; N17.9 Acute kidney failure, unspecified; E87.1 Hypo-osmolality and hyponatremia; N13.6 Pyonephrosis; E87.0 Hyperosmolality and hypernatremia; Z66 Do not resuscitate; E87.5 Hyperkalemia; R73.9 Hyperglycemia, unspecified; Z51.5 Encounter for palliative care; F03.90 Unspecified dementia, unspecified severity, without behavioral disturbance, psychotic disturbance, mood disturbance, and anxiety; K44.9 Diaphragmatic hernia without obstruction or gangrene; F17.200 Nicotine dependence, unspecified, uncomplicated; K56.41 Fecal impaction; M41.9 Scoliosis, unspecified; Z93.1 Gastrostomy status; Z88.0 Allergy status to penicillin; Z91.040 Latex allergy status; Z79.899 Other long term (current) drug therapy; Z86.73 Personal history of transient ischemic attack (TIA), and cerebral infarction without residual deficits
CPT/HCPCS: 36415; 70450-TC; 71045; 80048; 80053; 82962; 83605; 83690-TC; 84484; 85007; 85025; 85027; 85610-TC; 85730-TC; 87040-TC; 87081; 87186-TC; 93005; 94640; 94760; 96365; 96375; 99285; G0482; J1815; J1956; J2060; J2270; J7030; J7042; J7613